=== PATIENT | female | born 1995 | race Caucasian/White ===

== ENCOUNTER 2016-06-22 08:59 | Emergency (ER) | payer OTHER ==
[~2016-06-22] VITALS: Ht 165.1 cm; Wt 65.6 kg
[~2016-06-22 08:59] MED LIST: DEPA500T3 PO; IBUP600 PO; JUNETAB2 PO; LINA290C PO; LYRI150C PO; PRAZ1 PO; SUMA100T2 PO
[2016-06-22 09:09] VITALS: BP 115/72; PULSE 100; RESP 16; TEMP 98; O2SAT 100
[2016-06-22] MEDS ORDERED: PROZ20CA11 PO (09:19)
[2016-06-22] MEDS ORDERED: BUSP10TA PO (09:19)
[2016-06-22] MEDS ORDERED: BIRTH CONTROL PILLS PO (09:19)
--- NOTE | 2016-06-22 09:22 | PD ---
HPI Chief Complaint: Headache Time Seen by Provider: 09:14 Travel History International Travel<30 days: No Contact w/Intl Traveler<30days: No Traveled to known affect area: No History of Present Illness HPI This is a 21-year-old female who presents to the emergency department with a migraine headache that can present for one week. She says initially she had both sides of her head hurting and over the week gradually moved to the right side. She describes it as throbbing. It feels very similar to migraine she's had in the past. She has had some nausea but no vomiting. The lights bother her. She says she hasn't been able to rest at home. She says the headache came on gradually and she doesn't remember the exact moment that it started. PFSH Past Medical History Anemia: Yes Anxiety: Yes Depression: Yes Heart Rhythm Problems: Yes (atrial flutter) Cancer: No Cardiovascular Problems: Yes Diabetes: No Diminished Hearing: No Endocrine: No Fibromyalgia: Yes Glaucoma: No Genitourinary: No Headaches: Yes Hepatitis: No Hiatal Hernia: No Hypertension: No Immune Disorder: No Medical other: Yes (MIGRAINES, ANEMIA) Musculoskeletal: Yes (chronic back pain) Neurologic: No Psychiatric: No Reproductive: Yes ( ENDOMETRIOSIS) Respiratory: No Immunizations Current: Yes Migraines: Yes Thyroid Disease: No ?: Not LMP: ONE WEEK Menopausal: No : 1 Miscarriage: 1 Past Surgical History Abdominal Surgery: Yes (EXPLORATORY LAPAROSCOPY) AICD: No Cardiac Surgery: Yes (ablation for atrial flutter) Joint Replacement: No Oral Surgery: Yes (WISDOM TEETH REMOVED) Pacemaker: No Tonsillectomy: Yes Other Surgery: Yes (TOENAIL REMOVAL BILAT GREAT TOES) Social History Alcohol Use: No Tobacco Use: No Substance Use: Yes (marijuana) Allergies-Medications (Allergen,Severity, Reaction): Coded Allergies: Gabapentin (Unverified Allergy, Severe, Twitching, 06/22/16) Reported Meds & Prescriptions Reported Meds & Active Scripts Active Reported [ Control Pills] 1 Tab PO DAILY Buspirone (Buspirone HCl) 10 Mg Tab 20 Mg PO TID Prozac (Fluoxetine HCl) 20 Mg Cap 20 Mg PO DAILY Review of Systems Except as stated in HPI: all other systems reviewed are Neg Physical Exam Narrative GENERAL:Well appearing, no acute distress SKIN: Warm and dry. HEAD: Atraumatic. Normocephalic. EYES: Pupils equal and round. No injection or drainage. ENT: Moist mucous membranes NECK: Trachea midline. CARDIOVASCULAR: Regular rate and rhythm. No murmur appreciated. RESPIRATORY: Clear to auscultation. Breath sounds equal bilaterally. GASTROINTESTINAL: Abdomen soft, non-tender, nondistended. MUSCULOSKELETAL: No obvious deformities. NEUROLOGICAL: Awake and alert. No obvious cranial nerve deficits. No dysarthria or aphasia. No upper or lower extremity drift. No upper extremity ataxia. PSYCHIATRIC: Appropriate mood and affect; insight and judgment normal. Data Data Last Documented VS Vital Signs Date Time Temp Pulse Resp B/P Pulse Ox O2 Delivery O2 Flow Rate FiO2 06/22/16 09:50 90 18 108/73 100 06/22/16 09:09 98.0 Orders Ketorolac Inj (Toradol Inj) (06/22/16 09:30) Prochlorperazine Inj (Compazine Inj) (06/22/16 09:30) Diphenhydramine Inj (Benadryl Inj) (06/22/16 09:30) Sodium Chlor 0.9% 1000 Ml Inj (Ns 1000 M (06/22/16 09:30) ^ Insert Iv (06/22/16 09:20) MDM Medical Decision Making Medical Screen Exam Complete: Yes Emergency Medical Condition: Yes Interpretation(s) Afebrile, mild tachycardia, normotensive Differential Diagnosis Migraine headache, subarachnoid hemorrhage, tension headache, cluster headache Narrative Course This is a 21-year-old female who presents to the emergency department with headache typical of her migraines. She has a normal neurologic exam. I don't think any imaging is warranted. She was given Toradol, Compazine and Benadryl as well as IV hydration. She feels much better and wants to go home. Patient will be discharged with naproxen. Diagnosis Primary Impression: Migraine Patient Instructions: General Instructions, Migraine Headache (ED) Additional Instructions: If you develop severe worsening headache, persistent vomiting, numbness, weakness, difficulty walking or difficulty talking return to the emergency department immediately. Sometimes in the emergency department we did not identify the cause of headaches. If you continued to have headaches it is very important that he followup with your primary care physician as you may need further testing with an MRI. Med/Other Pt SpecificInfo: Prescription(s) given Scripts Naproxen 500 Mg [id number] Mg PO BID PRN (PAIN SCALE 4 TO 10) #20 TAB Prov:Jennifer Anderson MD 06/22/16 Disposition: 01 DISCHARGE HOME Condition: Stable Jennifer Anderson MD Jun 22, 2016 09:22
[2016-06-22] MEDS ORDERED: PROCHLORPERAZINE INJ 10 MG/2 ML VIAL IVS ONE (09:30)
[2016-06-22] MEDS ORDERED: SODIUM CHLOR 0.9% 1000 ML INJ 1,000 ML IV ONE (09:30)
[2016-06-22] MEDS ORDERED: diphenhydrAMINE HCL 50 MG/ML VIAL IV PUSH ONE (09:30)
[2016-06-22] MEDS ORDERED: KETOROLAC TROMETHAMINE 30 MG/ML (IVP) VIAL IV PUSH ONE (09:30)
[2016-06-22 09:50] VITALS: BP 108/73; PULSE 90; RESP 18; O2SAT 100
[2016-06-22] MEDS ORDERED: NAPR500T PO (10:07)
== END 2016-06-22 10:15 | disposition home or self-care (01) ==
LOC: PHED 08:59
DX: G43.909 Migraine, unspecified, not intractable, without status migrainosus (principal); M79.7 Fibromyalgia; R00.0 Tachycardia, unspecified
CPT/HCPCS: 96361; 96374; 96375; 99283; J0780; J1200; J1885; J7030

== ENCOUNTER 2016-06-25 17:16 | Inpatient (IN) | payer OTHER ==
[~2016-06-25] VITALS: Ht 165.1 cm; Wt 63.7 kg
[~2016-06-25 17:16] MED LIST changes: +BIRTH CONTROL PILLS PO; +BUSP10TA PO; -DEPA500T3 PO; -IBUP600 PO; -JUNETAB2 PO; -LINA290C PO; -LYRI150C PO; +NAPR500T PO; -PRAZ1 PO; +PROZ20CA11 PO; -SUMA100T2 PO
[2016-06-25 18:00] VITALS: BP 113/71; PULSE 91; RESP 18; TEMP 98.3; O2SAT 100
[2016-06-25 18:05] VITALS: BP 113/71; PULSE 85; RESP 18; O2SAT 100
[2016-06-25] MEDS ORDERED: SODIUM CHLOR 0.9% 1000 ML INJ 1,000 ML IV ONE (18:24)
[2016-06-25] MEDS ORDERED: SODIUM CHLORIDE 0.9% FLUSH 5 ML FLUSH IVF PRN (18:30)
[2016-06-25] MEDS ORDERED: MELA1CAP PO (18:32)
[2016-06-25] MEDS ORDERED: PRENATAL VITAMIN PO (18:32)
[2016-06-25] MEDS ORDERED: ZYRT10TA PO (18:32)
[2016-06-25] MEDS ORDERED: LINA290C PO (18:32)
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
[2016-06-25 18:50] VITALS: BP 111/67; PULSE 99; RESP 18; O2SAT 100
[2016-06-25 18:51] LABS: AUTOMATED NEUTROPHIL # 4.8 TH/MM3 (1.8-7.7); BASOPHIL % 0.4 % (0.0-2.0); EOSINOPHIL % 0.4 % (0.0-4.0); HEMATOCRIT 38.3 % (35.0-46.0); HEMO FLAGS DIFF FINAL; LYMPH % 26.4 % (9.0-44.0); MEAN CORPUSCULAR HEMOGLOBIN 30.7 PG (27.0-34.0); MEAN CORPUSCULAR HGB CONC 34.1 % (32.0-36.0); MONO % 9.7 % (0.0-8.0); NEUT % 63.1 % (16.0-70.0); PLATELET COUNT 420 TH/MM3 (150-450); RED BLOOD COUNT 4.25 MIL/MM3 (4.00-5.30); RED CELL DISTRIBUTION WIDTH 12.7 % (11.6-17.2); WHITE BLOOD COUNT 7.6 TH/MM3 (4.0-11.0)
[2016-06-25 18:53] LABS: BLOOD, URINE NEG (NEG); GLUCOSE,URINE NEG (NEG); KETONE, URINE NEG (NEG); NITRITE,URINE NEG (NEG); SQUAMOUS EPITHELIAL CELL URINE 1 /hpf (0-5); URINE COLOR LIGHT-YELLOW (YELLW/STRAW)
[2016-06-25 18:57] LABS: AMPHETAMINE, URINE NEG (NEG); BARBITURATES, URINE NEG (NEG); COCAINE, URINE NEG (NEG)
[2016-06-25 19:02] LABS: COMMENT (UR) CULT NOT INDICATED; CULTURE IF INDICATED CULT NOT INDICATED
[2016-06-25 19:25] LABS: APTT (PATIENT) 26.8 SEC (24.3-30.1); PROTHROMBIN TIME - PATIENT 10.7 SEC (9.8-11.6)
[2016-06-25 19:37] LABS: ANION GAP 8 MEQ/L (5-15); AST (GOT) 13 U/L (15-37); BICARBONATE 25.7 MEQ/L (21.0-32.0); BLOOD UREA NITROGEN 6 MG/DL (7-18); CHLORIDE 104 MEQ/L (98-107); GLOMERULAR FILTRATION RATE 86 ML/MIN (>89); POTASSIUM 3.5 MEQ/L (3.5-5.1); SODIUM (NA) 138 MEQ/L (136-145)
[2016-06-25 19:41] LABS: ACETAMINOPHEN LESS THAN 2.0 MCG/ML (10.0-30.0); ALKALINE PHOSPHATASE 52 U/L (45-117); ALT (GPT) 31 U/L (10-53); TOTAL BILIRUBIN ADULT 0.2 MG/DL (0.2-1.0)
[2016-06-25 20:00] VITALS: BP 108/65; PULSE 70; RESP 16; O2SAT 100
[2016-06-25 22:00] VITALS: BP 109/68; PULSE 94; RESP 18; O2SAT 98
[2016-06-25] MEDS ORDERED: ACETAMINOPHEN 500 MG CPLT PO ONE (22:30)
[2016-06-25 22:56] VITALS: BP 121/60; PULSE 114; RESP 16; TEMP 97.5; O2SAT 98
[2016-06-25] MEDS ORDERED: EXCETAB PO (23:16)
[2016-06-25] MEDS ORDERED: SOMA350T PO (23:16)
[2016-06-25] MEDS ORDERED: LYRI200C PO (23:16)
[2016-06-25] MEDS ORDERED: ALUMINUM/MAGNESIUM/SIMETH 30 ML CUP PO PRN (23:45)
[2016-06-25] MEDS ORDERED: MAGNESIUM HYDROXIDE SUSP 30 ML CUP PO PRN (23:45)
[2016-06-26 00:03] LABS: BETA HCG QUANT LESS THAN 1 MIU/ML (0-5)
[2016-06-26] MEDS: CARISOPRODOL 350 MG TAB PO PRN ×3 (00:27→17:46)
[2016-06-26] MEDS: TEMAZEPAM 15 MG CAP PO PRN ×2 (00:27→20:51)
[2016-06-26 00:50] VITALS: PULSE 107; RESP 18; TEMP 98.2; O2SAT 100
[2016-06-26 05:06] VITALS: BP 110/68; PULSE 89; RESP 16; TEMP 97.6
[2016-06-26] MEDS: MULTIVIT/MIN/PREN/FOL AC/IRON PRENATAL TAB PO SCH (08:51)
[2016-06-26] MEDS: PREGABALIN 100 MG CAP PO SCH ×2 (08:51→20:35)
[2016-06-26] MEDS: NICOTINE 21 MG/24 HR PATCH T-DERMAL SCH (08:52)
[2016-06-26] MEDS ORDERED: LINACLOTIDE 290 MCG PO SCH (09:00)
[2016-06-26] MEDS ORDERED: FLUoxetine HCL 20 MG CAP PO SCH (09:00)
[2016-06-26] MEDS ORDERED: busPIRone HCL 10 MG TAB PO SCH (09:00)
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
--- NOTE | 2016-06-26 16:32 | EKG ---
Date Performed: 06/25/2016 Time Performed: 18:11:18 PTAGE: 21 years EKG: Sinus rhythm WITH SINUS ARRHYTHMIA WITH SHORT MD INTERVAL POSSIBLE RIGHT VENTRICULAR CONDUCTION DELAY BORDERLINE ECG NO PREVIOUS TRACING DOCTOR: Tommy Sarah Interpretating Date/Time 06/26/2016 16:30:05
[2016-06-26] MEDS: busPIRone HCL 10 MG TAB PO SCH (17:46)
[2016-06-26 18:52] VITALS: BP 112/79; PULSE 109; RESP 19; TEMP 97.9; O2SAT 97
[2016-06-26] MEDS: REMOVE OLD NICOTINE PATCH T-DERMAL SCH (20:35)
[2016-06-26] MEDS: ACETAMINOPHEN 325 MG TAB PO PRN (20:51)
[2016-06-26] MEDS: CETIRIZINE HCL 10 MG TAB PO PRN (22:10)
[2016-06-27] MEDS: CARISOPRODOL 350 MG TAB PO PRN ×2 (04:20→20:58)
[2016-06-27 06:22] VITALS: BP 98/63; PULSE 79; RESP 16; TEMP 97.6
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
[2016-06-27] MEDS: MULTIVIT/MIN/PREN/FOL AC/IRON PRENATAL TAB PO SCH (08:46)
[2016-06-27] MEDS: busPIRone HCL 10 MG TAB PO SCH ×3 (08:46→17:39)
[2016-06-27] MEDS: FLUoxetine HCL 20 MG CAP PO SCH (08:47)
[2016-06-27] MEDS: NICOTINE 21 MG/24 HR PATCH T-DERMAL SCH (08:47)
[2016-06-27] MEDS: PREGABALIN 100 MG CAP PO SCH ×2 (08:47→20:58)
[2016-06-27] MEDS: ACETAMINOPHEN 325 MG TAB PO PRN ×2 (08:47→16:57)
[2016-06-27 09:29] LABS: FREE T4 1.38 NG/DL (0.76-1.46); HDL CHOLESTEROL 51.5 MG/DL (40.0-60.0); LDL CHOLESTEROL 151 MG/DL (0-99); MAGNESIUM 2.3 MG/DL (1.5-2.5); URIC ACID 3.9 MG/DL (2.6-6.0)
[2016-06-27 09:32] LABS: CREATINE KINASE 41 U/L (26-192)
[2016-06-27 12:49] LABS: HEMOGLOBIN A1a 1.4 %; HEMOGLOBIN A1b 0.9 %; HEMOGLOBIN Ao 86.3 %; HEMOGLOBIN F 0.9 %; HEMOGLOBIN LA1C 1.8 %; HEMOGLOBIN P3 3.5 %
[2016-06-27] MEDS: CETIRIZINE HCL 10 MG TAB PO PRN (17:25)
[2016-06-27 18:43] VITALS: BP 106/67; PULSE 114; RESP 16; TEMP 99.1; O2SAT 100
[2016-06-27] MEDS: TEMAZEPAM 15 MG CAP PO PRN (20:58)
[2016-06-27] MEDS: REMOVE OLD NICOTINE PATCH T-DERMAL SCH (21:00)
[2016-06-28] MEDS: ACETAMINOPHEN 325 MG TAB PO PRN ×3 (03:49→20:18)
[2016-06-28] MEDS: CARISOPRODOL 350 MG TAB PO PRN ×3 (03:49→21:27)
[2016-06-28 06:30] VITALS: BP 111/67; PULSE 99; RESP 18; TEMP 98.1; O2SAT 100
[2016-06-28] MEDS: MULTIVIT/MIN/PREN/FOL AC/IRON PRENATAL TAB PO SCH (08:46)
[2016-06-28] MEDS: PREGABALIN 100 MG CAP PO SCH ×2 (08:46→20:17)
[2016-06-28] MEDS: FLUoxetine HCL 20 MG CAP PO SCH (08:46)
[2016-06-28] MEDS: busPIRone HCL 10 MG TAB PO SCH ×3 (08:47→17:44)
[2016-06-28] MEDS: NICOTINE 21 MG/24 HR PATCH T-DERMAL SCH (08:48)
[2016-06-28 12:06] VITALS: BP 117/77; PULSE 126; RESP 16; O2SAT 98
[2016-06-28] MEDS: CETIRIZINE HCL 10 MG TAB PO PRN (17:51)
[2016-06-28 19:03] VITALS: BP 120/77; PULSE 105; RESP 18; TEMP 98.1; O2SAT 100
[2016-06-28] MEDS: TEMAZEPAM 15 MG CAP PO PRN (20:16)
[2016-06-28] MEDS: REMOVE OLD NICOTINE PATCH T-DERMAL SCH (20:21)
[2016-06-29 05:16] VITALS: BP 109/57; PULSE 91; RESP 14; TEMP 98.5; O2SAT 98
[2016-06-29] MEDS: CARISOPRODOL 350 MG TAB PO PRN ×2 (05:20→12:59)
[2016-06-29] MEDS: NICOTINE 21 MG/24 HR PATCH T-DERMAL SCH (09:00)
[2016-06-29] MEDS: FLUoxetine HCL 20 MG CAP PO SCH (09:09)
[2016-06-29] MEDS: MULTIVIT/MIN/PREN/FOL AC/IRON PRENATAL TAB PO SCH (09:09)
[2016-06-29] MEDS: busPIRone HCL 10 MG TAB PO SCH ×2 (09:09→12:59)
[2016-06-29] MEDS: PREGABALIN 100 MG CAP PO SCH (09:10)
[2016-06-29] MEDS: ACETAMINOPHEN 325 MG TAB PO PRN (09:13)
[2016-06-29] MEDS ORDERED: BUSP10TA PO (15:18)
[2016-06-29] MEDS ORDERED: FLUO20CA4 PO (15:18)
--- NOTE | 2016-06-29 15:54 | HHI.PYPN ---
Subjective Remarks Dr. brewer is on vacation. Patient seen by me today. Demanding discharge. Stated that Dr. brewer verbally told her she could be discharged today a.m. a. Patient denies suicidality homicidality voices or visions. States she has an appointment with her talk therapist patient does deny suicidality as mentioned above who minimizes the overdose. There is a somewhat contradictory story about seeing a therapist and a psychiatrist through [facility] and also seeing another physician who is also prescribing benzodiazepines for her. In any event at the present time patient does not be criteria for involuntary psychiatric hospitalization though I feel she would benefit from further inpatient stay to stabilize and balance are medications. Also to get appropriate medical clearance. Patient does not wish this wishes to be discharge at this time. I'll allow the patient was discharged AGAINST MEDICAL ADVICE. We will also give her only 1 week supply of her Prozac 1 week supply of her BuSpar she may contact her psychiatrist or primary care friend of the medication management Review of Systems Except as stated in HPI: all other systems reviewed are Neg Objective Alert: Yes Warren: Person, Place, Date Mood: Calm, Oppositional, Other (demanding and entitled) Affect: Euthymic, Labile (mildly) Memory Intact: Comment Hallucinations: Other (denies) Delusions: No Delusion Type: Other (vigilant) Suicidal: Ideation (denies) Homicidal: Ideation (denies) Insight/Judgement Poor Vitals/IOs Vital Signs Date Time Temp Pulse Resp B/P Pulse Ox O2 Delivery O2 Flow Rate FiO2 06/29/16 05:16 98.5 91 14 109/57 98 06/25/16 22:56 Room Air Assessment & Plan Problem List: (1) Dysthymic disorder ICD Code: F34.1 (2) Borderline personality disorder ICD Code: F60.3 Assessment & Plan Estimated LOS: days patient to be discharged AMA today. With Rx only for 1 week of the Prozac and BuSpar. Patient may follow-up with her own psychiatrist at [facility] and her own counselor Justification for Cont. Inpt. Patient to be discharged AMA Discharge Planning See above Request HC Surrog/Guard Advoc?: No Ehsan Collins MD Jun 29, 2016 15:54
== END 2016-06-29 16:30 | disposition left against medical advice (07) | DRG 881 ==
LOC: NEPE 17:16 → NEDA 06-26 00:14 → H260 06-26 00:50
PROVIDERS: ADMIT Psychiatry & Neurology Psychiatry; ATTEND Psychiatry & Neurology Psychiatry
DX: F34.1 Dysthymic disorder (principal); I48.91 Unspecified atrial fibrillation; F31.9 Bipolar disorder, unspecified; F60.3 Borderline personality disorder; G43.909 Migraine, unspecified, not intractable, without status migrainosus; F43.10 Post-traumatic stress disorder, unspecified; Z86.59 Personal history of other mental and behavioral disorders; M54.9 Dorsalgia, unspecified; N80.9 Endometriosis, unspecified; Z62.810 Personal history of physical and sexual abuse in childhood; Z91.5 Personal history of self-harm; M79.7 Fibromyalgia
CPT/HCPCS: 80053; 80061; 80307; 80320; 80329; 81001; 82306; 82550; 82607; 83036; 83735; 84100; 84439; 84443; 84550; 84702; 85025; 85610; 85730; 86592; 93005; 96360; 96361; G0480; J7030

== ENCOUNTER → 2017-02-03 | Outpatient (CLI) | payer MEDICAID ==
[~2017-02-03] MED LIST changes: -BIRTH CONTROL PILLS PO; -BUSP10TA PO; +MELA1TAB18 PO; -NAPR500T PO; +PREN1TAB14 PO; +PRENATAL VITAMIN PO; -PROZ20CA11 PO; +TYLE325T PO; +ZOFR8TAB PO
== END ==
LOC: HPND 09:56
PROVIDERS: ATTEND Obstetrics & Gynecology
DX: O35.2XX0 Maternal care for (suspected) hereditary disease in fetus, not applicable or unspecified (principal); O99.352 Diseases of the nervous system complicating pregnancy, second trimester; R56.9 Unspecified convulsions; O99.342 Other mental disorders complicating pregnancy, second trimester; Z3A.00 Weeks of gestation of pregnancy not specified
CPT/HCPCS: 76811

== ENCOUNTER → 2017-03-03 | Outpatient (CLI) | payer MEDICAID | LOC: HPND 10:51 | PROVIDERS: ATTEND Obstetrics & Gynecology | DX: O35.2XX0 Maternal care for (suspected) hereditary disease in fetus, not applicable or unspecified (principal); O35.5XX0 Maternal care for (suspected) damage to fetus by drugs, not applicable or unspecified | CPT/HCPCS: 76816; 76825; 76827; 93325 ==

== ENCOUNTER → 2017-03-17 | Outpatient (CLI) | payer MEDICAID | LOC: HPND 13:37 | PROVIDERS: ATTEND Obstetrics & Gynecology | DX: O36.5920 Maternal care for other known or suspected poor fetal growth, second trimester, not applicable or unspecified (principal); O35.2XX0 Maternal care for (suspected) hereditary disease in fetus, not applicable or unspecified | CPT/HCPCS: 76816 ==

== ENCOUNTER → 2017-04-08 | Outpatient (CLI) | payer MEDICAID ==
[~2017-04-08] MED LIST changes: +MACR100C2 PO
== END ==
LOC: HPND 13:08
PROVIDERS: ATTEND Obstetrics & Gynecology
DX: O36.5920 Maternal care for other known or suspected poor fetal growth, second trimester, not applicable or unspecified (principal)
CPT/HCPCS: 76816

== ENCOUNTER 2017-04-16 21:52 | Emergency (ER) | payer MEDICAID ==
[~2017-04-16 21:52] MED LIST changes: -MACR100C2 PO
[2017-04-16] MEDS ORDERED: LACTATED RINGER'S 1000 ML INJ 1,000 ML IV SCH (22:41)
--- NOTE | 2017-04-16 22:50 | PD ---
HPI Chief Complaint Contractions Date Seen: Apr 16, 2017 Time Seen: 22:40 Travel History International Travel<30 Days: No Contact w/Intl Traveler<30Days: No Known Affected Area: No History of Present Illness HPI Patient is 22-year-old white female at 29 weeks [facility] and presents planning of contractions through the day, she denies bleeding or ruptured membranes., heart rate tracing is reactive and she is caridad every 3 minutes Weeks Gestation: 29 Para: 0 : 2 Miscarriage: 1 History Past Medical History Narrative Medical Patient has a history of atrial fib and atrial flutter. She's had ablation for the atrial fibrillation in the past still has atrial flutter and is not on medication at this time. 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 Chriss Ocasio [facility]. Patient' s had hyperemesis with this throughout and takes Zofran at home Obstetric History Obstetric History 1 early loss Past Surgical History Narrative Surgical Had an ablation procedure on the to treat atrial fibrillation Social History Alcohol Use: No Tobacco Use: No Substance Abuse: No Allergies-Medications (Allergen,Severity, Reaction): Coded Allergies: gabapentin (Unverified Allergy, Severe, Twitching, 01/20/17) Home Meds Active Scripts Ondansetron (Zofran) 8 Mg Tab, 8 MG PO TID for Nausea/Vomiting, #30 TAB 2 Refills Prov:Cat GilP 03/04/17 Vit W/ Docusate-Fe Fu (Pnv Ferrous Fumarate/Docu 29-1 mg) 1 Tab Tab, 1 TAB PO DAILY for Nutritional Supplement, #60 TAB 2 Refills Prov:Vicki Nieto CNM [facility] 12/07/16 Reported Medications Acetaminophen (Tylenol) 325 Mg Tab, 1000 MG PO BID Y for PAIN SCALE 1 TO 10, TAB 0 Refills 01/20/17 Melatonin (Melatonin) 10 Mg Tab, 10 MG PO HS Y for SLEEP, TAB 0 Refills 01/20/17 [ Vitamin] No Conflict Check, 1 TAB PO DAILY 06/25/16 Review of Systems General / Constitutional: No: Fever, Weight Gain, Chills, Other Eyes: No: Diploplia, Blurred Vision, Visual changes, Pain, Photophobia HENT: No: Headaches, Vertigo, Lightheadedness Cardiovascular: No: Irregular Rhythm, Chest Pain or Discomfort, Palpitations, Tachycardia, Syncope, Varicosities, Edema, Cyanosis Respiratory: No: Cough, Short of Breath, Other Gastrointestinal: Abdominal Pain, No: Nausea, Vomiting, Diarrhea Genitourinary: No: Decreased Urinary Output, Oliguria Musculoskeletal: No: Limited ROM, Weakness, Cramping, Edema, Pain Skin: No Rash, No Itching, No Dryness, No Lumps, No Change in Pigmentation, No Change in Nails, No Alopecia, No Lesions Neurologic: No: Weakness, Dizziness, Syncope, Focal Abnormalities, Coordination Problem, Headache, Slurred Speech, Seizures Psychiatric: No: Depression, Suicidal Ideations, Homicidal Ideation Endocrine: No: Heat Intolerance, Cold Intolerance, Polydipsia, Polyuria, Other Physical Exam Narrative GENERAL: Well-nourished, well-developed patient. SKIN: Warm and dry. HEAD: Normocephalic and atraumatic. EYES: No scleral icterus. No injection or drainage. ENT: No nasal drainage noted. Mucous membranes pink. Airway patent. NECK: Supple, trachea midline. No JVD. CARDIOVASCULAR: Regular rate and rhythm without murmurs, gallops, or rubs. RESPIRATORY: Breath sounds equal bilaterally. No accessory muscle use. BREASTS: Bilateral exam showed no masses , no retractions, no nipple discharge. ABDOMEN/GI: Abdomen soft, non-tender, bowel sounds present, no rebound, no guarding Gravid to [29-] weeks size Fundal Height: [-29] GENITOURINARY: External Genitalia: intact and normal in appearance BUS glands: [-] Cervix: [Posterior-] Dilatation: [-Closed] Effacement: [thick-] Station: [-3] Membranes: [intact ] Uterine Contractions: [-q 3 min] FHT's: Category: [1-] Baseline: [133-] Reactive: [-yes] Variability: [mod-] Decels: [0-] EXTREMITIES: No cyanosis or edema. BACK: Nontender without obvious deformity. No CVA tenderness. NEUROLOGICAL: Awake and alert. Motor and sensory grossly within normal limits. Five out of 5 muscle strength in all muscle groups. Normal speech. Data Data Orders Orders Vital Signs (Adult) .ON ADMISSION (04/16/17 22:41) ^ Labor Status (04/16/17 22:41) Urinalysis - C+S If Indicated (04/16/17 22:41) Cbc No Diff, Includes Plts (04/16/17 22:41) Comprehensive Metabolic Panel (04/16/17 22:41) Type And Screen (04/16/17 22:41) Fibronectin (04/16/17 22:41) Lactated Ringer's 1000 Ml Inj (Lr 1000 M (04/16/17 22:41) Ob/Psych Drug Screen, Urine (04/16/17 22:41) Fentanyl Inj (Fentanyl Inj) (04/16/17 22:45) Labs Urine on dipstick is negative urinalysis in the lab was positive for moderate bacteria MDM Interpretation(s) Patient is 22-year-old white female at 29 weeks who presents with contractions. She also had nausea and vomiting long-term in this . Denies bleeding or ruptured membranes. Using is reactive and she is caridad every 3 minutes. Because of contractions we will attempt to decrease those with the IV fluid and tocolyse is as indicated because of her history of heart arrhythmias were not going to give her terbutaline however amenability give her IV sedation along with IV fluid and possibly if needed magnesium sulfate IV, her fibronectin was done Plan Plan it is tocolyse as needed. Plan IV fluid and sedation. An old well moved to the next level of the tocolyse as indicated Diagnosis Diagnosis: Primary Impression: Threatened premature labor in third trimester Additional Impressions: 29 weeks gestation of UTI (urinary tract infection) in in third trimester Disposition: DISCHARGE HOME Condition: Stable Scripts Nitrofurantoin Monohydrate Macrocrystals (Macrobid) 100 Mg Cap 100 MG PO BID for Infection for 7 Days, #14 CAP 0 Refills Prov: Catrachito Beebe II, MD 04/16/17 Catrachito Beebe II, MD Apr 16, 2017 22:50
[2017-04-16 23:11] LABS: BLOOD, URINE NEG (NEG); GLUCOSE,URINE TRACE mg/dL (NEG); KETONE, URINE NEG (NEG); NITRITE,URINE NEG (NEG); PH, URINE 6.5 (5.0-8.5); URINE COLOR LIGHT-YELLOW (YELLW/STRAW)
[2017-04-16 23:17] LABS: HEMATOCRIT 33.6 % (35.0-46.0); MEAN CELL VOLUME 89.9 FL (80.0-100.0); MEAN CORPUSCULAR HEMOGLOBIN 30.1 PG (27.0-34.0); MEAN CORPUSCULAR HGB CONC 33.5 % (32.0-36.0); PLATELET COUNT 337 TH/MM3 (150-450); RED BLOOD COUNT 3.74 MIL/MM3 (4.00-5.30); RED CELL DISTRIBUTION WIDTH 13.8 % (11.6-17.2); REVIEW FLAG FINAL; WHITE BLOOD COUNT 10.4 TH/MM3 (4.0-11.0)
[2017-04-16 23:19] LABS: BACTERIA, URINE MOD /hpf; COMMENT (UR) CULTURE INDICATED; CULTURE IF INDICATED CULTURE INDICATED; SQUAMOUS EPITHELIAL CELL URINE > 8 /hpf (0-5)
[2017-04-16 23:34] LABS: ALT (GPT) 19 U/L (10-53); ANION GAP 8 MEQ/L (5-15); AST (GOT) 14 U/L (15-37); BICARBONATE 24.6 MEQ/L (21.0-32.0); BLOOD UREA NITROGEN 5 MG/DL (7-18); CHLORIDE 106 MEQ/L (98-107); GLOMERULAR FILTRATION RATE 163 ML/MIN (>89); POTASSIUM 3.6 MEQ/L (3.5-5.1); SODIUM (NA) 139 MEQ/L (136-145)
[2017-04-16 23:36] LABS: ALKALINE PHOSPHATASE 77 U/L (45-117); TOTAL BILIRUBIN ADULT 0.2 MG/DL (0.2-1.0)
[2017-04-16] MEDS ORDERED: MACR100C2 PO (23:51)
[2017-04-24 09:32] LABS: BATH SALTS (MDPV) UR NEG (NEG); ECSTASY (MDMA) UR NEG (NEG); HEROIN (6-ACETYLMORPHINE) UR NEG (NEG); K2 SPICE UR NEG (NEG); OBGABAPENTIN UR NEG (NEG); OBHYDROMORPHONE U NEG (NEG); OBMETHADONE UR NEG (NEG); PHENCYCLIDINE URINE NEG (NEG)
== END 2017-04-16 23:50 | disposition home or self-care (01) ==
LOC: HOBED 21:52
DX: O47.03 False labor before 37 completed weeks of gestation, third trimester (principal); O23.43 Unspecified infection of urinary tract in pregnancy, third trimester; B96.89 Other specified bacterial agents as the cause of diseases classified elsewhere; Z3A.29 29 weeks gestation of pregnancy; Z79.899 Other long term (current) drug therapy
CPT/HCPCS: 59025; 80053; 80307; 81001; 82731; 85027; 86850; 86900; 86901; 87086; 96360; 96372; 99284; G0481

== ENCOUNTER → 2017-04-29 | Outpatient (CLI) | payer MEDICAID ==
[~2017-04-29] MED LIST changes: +MACR100C2 PO
== END ==
LOC: HPND 14:09
PROVIDERS: ATTEND Obstetrics & Gynecology
DX: O36.5930 Maternal care for other known or suspected poor fetal growth, third trimester, not applicable or unspecified (principal)
CPT/HCPCS: 76816

== ENCOUNTER 2017-05-27 13:03 | Emergency (ER) | payer MEDICAID ==
--- NOTE | 2017-05-27 14:38 | PD ---
HPI Chief Complaint Painful contractions Date Seen: May 27, 2017 Time Seen: 14:32 Travel History International Travel<30 Days: No Contact w/Intl Traveler<30Days: No Known Affected Area: No History of Present Illness HPI Patient is a 22-year-old at 35/4 weeks presenting with painful contractions. Patient states that contractions began at 7 AM this morning, was feeling them 1 minute apart, states that they're painful at as 6/out of 10. Denies vaginal bleeding, leakage of fluid, endorses movement Last intercourse was on the . course has been without complications per patient, however patient has not been receiving regular care due to missing appointments. Last appointment was 03/18/17. Patient states that she has problems with transportation and that she can't drive herself because she has nausea. Weeks Gestation: 35 Para: 0 : 2 Miscarriage: 1 History Past Medical History Narrative Medical Sciatica pain Atrial flutter - cardiac ablation Seizure Depression Fibromyalgia Obstetric History Obstetric History History of miscarriage in 2011 Past Surgical History Narrative Surgical No recent surgery Family History Family History: Negative Social History Alcohol Use: No Tobacco Use: No Substance Abuse: No Allergies-Medications (Allergen,Severity, Reaction): Coded Allergies: gabapentin (Unverified Allergy, Severe, Twitching, 01/20/17) Home Meds Active Scripts Nitrofurantoin Monohydrate Macrocrystals (Macrobid) 100 Mg Cap, 100 MG PO BID for Infection for 7 Days, #14 CAP 0 Refills Prov:Catrachito Beebe II, MD 04/16/17 Ondansetron (Zofran) 8 Mg Tab, 8 MG PO TID for Nausea/Vomiting, #30 TAB 2 Refills Prov:Cat Gil 03/04/17 Vit W/ Docusate-Fe Fu (Pnv Ferrous Fumarate/Docu 29-1 mg) 1 Tab Tab, 1 TAB PO DAILY for Nutritional Supplement, #60 TAB 2 Refills Prov:Vicki Nieto CNM [facility] 12/07/16 Reported Medications Acetaminophen (Tylenol) 325 Mg Tab, 1000 MG PO BID Y for PAIN SCALE 1 TO 10, TAB 0 Refills 01/20/17 Melatonin (Melatonin) 10 Mg Tab, 10 MG PO HS Y for SLEEP, TAB 0 Refills 01/20/17 [ Vitamin] No Conflict Check, 1 TAB PO DAILY 06/25/16 Review of Systems Except as stated in HPI: all other systems reviewed are Neg Physical Exam Narrative GENERAL: Well-nourished, well-developed patient. SKIN: Warm and dry. HEAD: Normocephalic and atraumatic. EYES: No scleral icterus. No injection or drainage. NECK: Supple, trachea midline. No JVD. CARDIOVASCULAR: Regular rate and rhythm without murmurs, gallops, or rubs. RESPIRATORY: Breath sounds equal bilaterally. No accessory muscle use. ABDOMEN/GI: Abdomen soft, non-tender, bowel sounds present, no rebound, no guarding GENITOURINARY: Cervix: Posterior Dilatation: 0 Effacement: [-] Station: [-] Presentation: [-] Membranes: [intact or ruptured] Uterine Contractions: Irregular FHT's: Category: 1 Baseline: 130s Reactive: Yes Variability:moderate Decels: None EXTREMITIES: No cyanosis or edema. NEUROLOGICAL: Awake and alert. Motor and sensory grossly within normal limits. Normal speech. Data Data Vital Signs Reviewed: Yes Labs Initial lab date: Nov 23, 2016 Blood type: B D (Rh) Type: Positive Antibody screen: negative Hematocrit (%): 35.5 Hemoglobin (dL): 11.8 Pap test: abnormal (ASCUS/HR HPV) VDRL: negative Urine screen: Normal HBsAg: negative HIV: negative Chlamydia: negative Gonorrhea: negative MSAFP/multiple markers: negative (NIPT NEG/FEMALE) MDM Medical Record Reviewed: Yes Plan Patient is a 22-year-old at 35/4 weeks. Complains of painful contractions. Patient is not currently caridad regularly Patient cervix is closed No concern for labor heart tracing is category 1, reassuring Patient likely experiencing [place] contractions Provide patient with 50 Demerol and 25 Phenergan IM for pain relief Discharge patient with instructions to return if vaginal bleeding, gush of fluid , or frequent regular contractions DW Dr. Beebe Diagnosis Diagnosis: Primary Impression: 35 weeks gestation of Additional Impression: [place] contractions Disposition: DISCHARGE HOME Condition: Stable Hilda Nickerson MD R1 May 27, 2017 14:38
[2017-05-27] MEDS ORDERED: PROMETHAZINE HCL 25 MG TAB PO ONE (14:45)
[2017-05-27] MEDS ORDERED: MEPERIDINE HCL 50 MG TAB PO ONE (14:45)
[2017-05-27] MEDS ORDERED: MEPERIDINE HCL 50 MG/ML VIAL IM ONE (15:30)
[2017-05-27] MEDS ORDERED: PROMETHAZINE INJ 25 MG/ML VIAL IM ONE (15:30)
[2017-06-14] MEDS ORDERED: ZANT150T2 PO (15:13)
== END 2017-05-27 16:37 | disposition home or self-care (01) ==
LOC: HOBED 13:03
DX: O47.03 False labor before 37 completed weeks of gestation, third trimester (principal); Z3A.35 35 weeks gestation of pregnancy
CPT/HCPCS: 59025; 96372; 99284; J2175; J2550

== ENCOUNTER 2017-06-28 12:12 | Emergency (ER) | payer MEDICAID ==
[~2017-06-28 12:12] MED LIST changes: -MACR100C2 PO; -MELA1TAB18 PO; +PROM25TA10 PO; +ZANT150T2 PO
--- NOTE | 2017-06-28 13:08 | PD ---
HPI Chief Complaint loss of fluids Date Seen: Jun 28, 2017 Time Seen: 13:03 (Adriel Alvarado MD) Travel History International Travel<30 Days: No Contact w/Intl Traveler<30Days: No Known Affected Area: No (Adriel Alvarado MD) History of Present Illness HPI 22 y/o at 40/1 weeks presents for loss of fluids. She states that around 9 this morning had some leaking of fluids. Denies any "gush." Then, an hour later, had more leakage of fluids with mucus plug as well. Denies any vaginal bleeding. Endorses occasional contraction. Endorses good movement. She sees [facility], and she called in and they recommended her to be evaluated. Otherwise, denies any concerns. Has had chronic nausea/vomiting during this . Otherwise, no issues this . Denies any headaches, changes in vision, RUQ pain, leg pain. Some occasional leg swelling. No dysuria. Weeks Gestation: 40 Para: 0 : 2 Miscarriage: 1 (Adriel Alvarado MD) History Past Medical History Narrative Medical Atrial fibrillation Depression/anxiety Fibromyalgia Endometriosis (Adriel Alvarado MD) Obstetric History Obstetric History 1 miscarriage in 1st trimester in 2011 (Adriel Alvarado MD) Past Surgical History Narrative Surgical Atrial ablation 2014 (Adriel Alvarado MD) Family History Family History: Negative (Adriel Alvarado MD) Social History Alcohol Use: No Tobacco Use: No Substance Abuse: Yes (marijuana) (Adriel Alvarado MD) Allergies-Medications (Allergen,Severity, Reaction): Coded Allergies: gabapentin (Unverified Allergy, Severe, Twitching, 07/05/17) Home Meds Active Scripts Sertraline (Zoloft) 50 Mg Tab, 50 MG PO DAILY, #30 TAB Prov:Yanique Gudino MD R2 07/04/17 Oxycodone HCl/Acetaminophen (Oxycodone-Acetaminophen 5-325) 5 Mg-325 Mg Tablet, 1 TAB PO Q4H Y for PAIN SCALE 6 TO 10, #20 TAB Prov:Herbie Maxwell MD R1 07/04/17 Ibuprofen (Ibuprofen) 600 Mg Tab, 600 MG PO Q6H Y for CRAMPING, #60 TAB 1 Refill Prov:Herbie Maxwell MD R1 07/04/17 Promethazine (Phenergan) 25 Mg Tablet, 25 MG PO Q6H Y for NAUSEA OR VOMITING, # 20 TAB 0 Refills Prov:Dangelo Villagran MD 06/21/17 Ondansetron (Zofran) 8 Mg Tab, 8 MG PO TID for Nausea/Vomiting, #30 TAB 2 Refills Prov:Cat Gil ROTARY ROCK DRILLING MACHINE OPERATOR 03/04/17 Vit W/ Docusate-Fe Fu (Pnv Ferrous Fumarate/Docu 29-1 mg) 1 Tab Tab, 1 TAB PO DAILY for Nutritional Supplement, #60 TAB 2 Refills Prov:Vicki Nieto BoraCarlos A GUZMÁN ROTARY ROCK DRILLING MACHINE OPERATOR 12/07/16 Reported Medications Ranitidine (Zantac) 150 Mg Tab, 150 MG PO DAILY for Reduce Stomach Acid, #30 TAB 0 Refills 06/14/17 Acetaminophen (Tylenol) 325 Mg Tab, 1000 MG PO BID Y for PAIN SCALE 1 TO 10, TAB 0 Refills 01/20/17 Review of Systems General / Constitutional: Weight Gain, No: Fever, Weight Loss, Chills Eyes: No: Visual changes, Pain HENT: Headaches, No: Vertigo Cardiovascular: No: Irregular Rhythm, Chest Pain or Discomfort, Palpitations Respiratory: No: Cough, Short of Breath Gastrointestinal: Nausea, No: Diarrhea, Abdominal Pain Genitourinary: No: Urgency, Frequency, Dysuria Musculoskeletal: No: Limited ROM, Weakness Skin: No Rash, No Itching, No Dryness, No Lumps Neurologic: No: Weakness, Dizziness, Syncope Psychiatric: Anxiety (Adriel Alvarado MD) Physical Exam Narrative GENERAL: Well-nourished, well-developed patient. SKIN: Warm and dry. HEAD: Normocephalic and atraumatic. EYES: No scleral icterus. No injection or drainage. ENT: No nasal drainage noted. Mucous membranes pink. Airway patent. NECK: Supple, trachea midline. No JVD. CARDIOVASCULAR: Regular rate and rhythm without murmurs, gallops, or rubs. RESPIRATORY: Breath sounds equal bilaterally. No accessory muscle use. ABDOMEN/GI: Abdomen soft, non-tender, bowel sounds present, no rebound, no guarding Gravid to 40 weeks size GENITOURINARY: External Genitalia: intact and normal in appearance Dilatation: 0-1 Effacement: 0 Station: -3 Presentation: vertex Membranes: intact Uterine Contractions:none FHT's: Category: 1 Baseline: 140 Reactive: yes Variability: moderate Decels: none EXTREMITIES: No cyanosis or edema. BACK: Nontender without obvious deformity. No CVA tenderness. NEUROLOGICAL: Awake and alert. Motor and sensory grossly within normal limits. Five out of 5 muscle strength in all muscle groups. Normal speech. (Adriel Alvarado MD) Data Data Vital Signs Reviewed: Yes Orders Orders Vital Signs (Adult) .ON ADMISSION (06/28/17 12:59) ^ Labor Status (06/28/17 12:59) ^ Non Stress Test (06/28/17 12:59) Pamg-1 Test .ONCE (06/28/17 12:59) Us Ob Bpp Wo Nst (06/28/17 12:59) Group B Strep: Negative (Adriel Alvarado MD) MDM Medical Record Reviewed: Yes Interpretation(s) 22 y/o at 40/1 weeks presents with leakage of fluids Amnisure negative Category 1 FHT Cervical exam: 0-1/0/-3 Vitals stable -Not in labor and no leakage of fluids; discharge home in stable condition -F/u with [facility], has appt today. -Induction on 2 evening scheduled -Return to ED if gush of fluids, vaginal bleeding, severe/frequent contractions (Adriel Alvarado MD) Attending Attestation I saw and evaluated patient with the resident and performed all ring decision making. No evidence of PROM or labor at this time. Strict PROM, labor precautions and FKC. Reassuring testing. [facility] (Cat Hercules MD) Diagnosis Diagnosis: Primary Impression: 40 weeks gestation of Disposition: DISCHARGE HOME Condition: Stable Patient Instructions: General Instructions Adriel Alvarado MD Jun 28, 2017 13:08 Cat Hercules MD Jul 19, 2017 12:44
== END 2017-06-28 13:43 | disposition home or self-care (01) ==
LOC: HOBED 12:12
DX: O26.893 Other specified pregnancy related conditions, third trimester (principal); Z3A.40 40 weeks gestation of pregnancy
CPT/HCPCS: 59025; 84112

== ENCOUNTER 2017-06-30 04:34 | Inpatient (IN) | payer MEDICAID ==
[2017-06-30] VITALS (57 sets, daily range): BP systolic 98–124; BP diastolic 49–89; PULSE 63–217; RESP 17–18; TEMP 98–99.6
[~2017-06-30] VITALS: Ht 165.1 cm; Wt 64.0 kg
[2017-06-30] MEDS ORDERED: LACTATED RINGER'S 1000 ML INJ 1,000 ML IV PRN (05:36)
--- NOTE | 2017-06-30 05:36 | PD ---
HPI Chief Complaint Contractions Date Seen: Jun 30, 2017 Time Seen: 05:28 Travel History International Travel<30 Days: No Contact w/Intl Traveler<30Days: No Known Affected Area: No History of Present Illness HPI 22-year-old at 40 weeks and 3 days using good dating criteria comes in tonight complaining of contractions that started on Wednesday night and continued through off and on then 45 hours ago became significantly worse. She states are occurring every 3-6 minutes. Last exam was within the past week and cervix was FT-1cm, with a negative group B strep. Patient has a history of cardiac ablation due to flutter and he she has been normal rhythm since that time and is on no cardiac medications Weeks Gestation: 40 Para: 0 : 2 Miscarriage: 1 History Past Medical History Narrative Medical Anxiety Depression Cardiac ablation Past Surgical History Narrative Surgical Laparoscopy for endometriosis Tonsillectomy Cardiac ablation Family History Family History: Negative Social History Alcohol Use: No Tobacco Use: No Substance Abuse: Yes (daily marijuana use) Allergies-Medications (Allergen,Severity, Reaction): Coded Allergies: gabapentin (Unverified Allergy, Severe, Twitching, 06/21/17) Home Meds Active Scripts Promethazine (Phenergan) 25 Mg Tablet, 25 MG PO Q6H Y for NAUSEA OR VOMITING, # 20 TAB 0 Refills Prov:Dangelo Villagran MD 06/21/17 Ondansetron (Zofran) 8 Mg Tab, 8 MG PO TID for Nausea/Vomiting, #30 TAB 2 Refills Prov:Cat Gil 03/04/17 Vit W/ Docusate-Fe Fu (Pnv Ferrous Fumarate/Docu 29-1 mg) 1 Tab Tab, 1 TAB PO DAILY for Nutritional Supplement, #60 TAB 2 Refills Prov:Vicki Nieto CNM PAIN MANAGEMENT PHYSICIAN 12/07/16 Reported Medications Ranitidine (Zantac) 150 Mg Tab, 150 MG PO DAILY for Reduce Stomach Acid, #30 TAB 0 Refills 06/14/17 Acetaminophen (Tylenol) 325 Mg Tab, 1000 MG PO BID Y for PAIN SCALE 1 TO 10, TAB 0 Refills 01/20/17 [ Vitamin] No Conflict Check, 1 TAB PO DAILY 06/25/16 Review of Systems Except as stated in HPI: all other systems reviewed are Neg Physical Exam Narrative GENERAL: Well-nourished, well-developed patient. Very dramatic during contractions, writhing in bed SKIN: Warm and dry. HEAD: Normocephalic and atraumatic. EYES: No scleral icterus. No injection or drainage. ENT: No nasal drainage noted. Mucous membranes pink. Airway patent. NECK: Supple, trachea midline. No JVD. CARDIOVASCULAR: Regular rate and rhythm without murmurs, gallops, or rubs. RESPIRATORY: Breath sounds equal bilaterally. No accessory muscle use. ABDOMEN/GI: Abdomen soft, non-tender, bowel sounds present, no rebound, no guarding Gravid to [-38] weeks size Fundal Height: [-] GENITOURINARY: External Genitalia: intact and normal in appearance BUS glands: [-] Normal Cervix: [-] Anterior Dilatation: [-] 1-2 Effacement: [-] 80 Station: [-] -2 Presentation: [-] Vertex Membranes: [intact or ruptured] intact Uterine Contractions: [-] Every 4-6 minutes FHT's: Category: [-] 1 Baseline: [-] 140 Reactive: [-] Moderate Variability: [-] Moderate Decels: [-] Absent EXTREMITIES: No cyanosis or edema. BACK: Nontender without obvious deformity. No CVA tenderness. NEUROLOGICAL: Awake and alert. Motor and sensory grossly within normal limits. Five out of 5 muscle strength in all muscle groups. Normal speech. Data Data Vital Signs Reviewed: Yes Group B Strep: Negative MDM Medical Record Reviewed: Yes Plan 22-year-old who is at 40 weeks and 3 days with extended prodromal labor and inability to tolerate contraction pain at home. Her history of prior fibromyalgia, anxiety and depression may play a part. Observation for possible labor with pain medication History daily marijuana use Diagnosis Diagnosis: Primary Impression: 40 weeks gestation of Additional Impressions: Irregular uterine contractions History of radiofrequency ablation procedure for cardiac arrhythmia Marijuana dependence Veronica Marie MD Jun 30, 2017 05:35
[2017-06-30] MEDS ORDERED: CITRIC ACID-SODIUM CITRATE LIQ 30 ML UDC PO SCH (05:45)
[2017-06-30] MEDS ORDERED: LIDOCAINE HCL 1% 50 ML VIAL INFIL PRN (05:45)
[2017-06-30] MEDS ORDERED: LIDOCAINE HCL 1% 50 ML VIAL I-DERMAL PRN (05:45)
[2017-06-30] MEDS ORDERED: SODIUM CHLORID 0.9% 500 ML INJ 500 ML IV PRN (05:45)
[2017-06-30] MEDS ORDERED: OXYTOCIN 30 UNITS-500ML PREMIX 500 ML IV ONE (05:45)
[2017-06-30 05:56] LABS: AUTOMATED NEUTROPHIL # 11.4 TH/MM3 (1.8-7.7); BASOPHIL # 0.1 TH/MM3 (0-0.2); BASOPHIL % 0.4 % (0.0-2.0); EOSINOPHIL # 0.1 TH/MM3 (0-0.4); EOSINOPHIL % 0.7 % (0.0-4.0); HEMATOCRIT 30.1 % (35.0-46.0); HEMOGLOBIN 10.7 GM/DL (11.6-15.3); LYMPH % 16.2 % (9.0-44.0); LYMPHOCYTE # 2.4 TH/MM3 (1.0-4.8); MEAN CELL VOLUME 86.1 FL (80.0-100.0); MEAN CORPUSCULAR HEMOGLOBIN 30.5 PG (27.0-34.0); MEAN CORPUSCULAR HGB CONC 35.4 % (32.0-36.0); MEAN PLATELET VOLUME 8.1 FL (7.0-11.0); MONO % 6.4 % (0.0-8.0); NEUT % 76.3 % (16.0-70.0); PLATELET COUNT 366 TH/MM3 (150-450); RED CELL DISTRIBUTION WIDTH 13.6 % (11.6-17.2); WHITE BLOOD COUNT 14.9 TH/MM3 (4.0-11.0)
[2017-06-30] MEDS ORDERED: SODIUM CHLOR 0.9% 1000 ML INJ 1,000 ML IV PRN (05:56)
[2017-06-30] MEDS: ONDANSETRON HCL 4 MG/2 ML VIAL IV PUSH PRN ×2 (06:09→14:50)
[2017-06-30 06:18] LABS: BACTERIA, URINE OCC /hpf; BILIRUBIN, URINE NEG (NEG); BLOOD, URINE NEG (NEG); GLUCOSE,URINE NEG (NEG); KETONE, URINE NEG (NEG); MUCUS URINE FEW /lpf (OCC); NITRITE,URINE NEG (NEG); PH, URINE 6.5 (5.0-8.5); SQUAMOUS EPITHELIAL CELL URINE 3 /hpf (0-5); URINE COLOR YELLOW (YELLW/STRAW); URINE LEUKOCYTE ESTERASE TRACE (NEG)
[2017-06-30] MEDS: LACTATED RINGER'S 1000 ML INJ 1,000 ML IV SCH ×3 (07:15→21:53)
[2017-06-30] MEDS ORDERED: fentaNYL 2MCG-BUPIV 0.125% INJ 100 ML ONE (08:49)
[2017-06-30] MEDS ORDERED: ePHEDrine/NS 25 MG/5 ML SYRINGE ONE (08:50)
[2017-06-30] MEDS ORDERED: ePHEDrine/NS 25 MG/5 ML SYRINGE IV PUSH PRN (10:45)
[2017-06-30] MEDS ORDERED: DO NOT ADMINISTER ANTICOAGULANTS PRN (10:45)
[2017-06-30] MEDS ORDERED: NO SYSTEM NARCOTICS PRN (10:45)
--- NOTE | 2017-06-30 11:27 | PD.LABORPN ---
Subjective Subjective Pt resting on her right side, comfortably. Epidural in place. Contractions every 5 minutes. Objective Vital Signs Vital Signs Date Time Temp Pulse Resp B/P (MAP) Pulse Ox O2 Delivery O2 Flow Rate FiO2 06/30/17 11:00 72 105/63 (77) 06/30/17 10:31 73 06/30/17 10:21 98.7 18 06/30/17 10:20 84 108/89 (95) 06/30/17 10:15 94 110/68 (82) 06/30/17 10:10 109/73 (85) 06/30/17 10:05 91 109/71 (84) 06/30/17 10:00 78 114/68 (83) 06/30/17 09:55 79 119/69 (86) 06/30/17 09:50 82 114/74 (87) 06/30/17 09:45 82 113/69 (84) 06/30/17 09:40 71 119/65 (83) 06/30/17 09:36 18 06/30/17 09:35 87 110/74 (86) 06/30/17 09:33 81 115/75 (88) 06/30/17 09:31 91 118/49 (72) 06/30/17 09:29 81 119/77 (91) 06/30/17 09:25 91 06/30/17 09:20 79 124/84 (97) 06/30/17 07:14 98.1 06/30/17 07:11 18 06/30/17 07:10 75 116/71 (86) 06/30/17 06:10 18 Objective Pelvic Exam: Cervix: soft Dilatation: 3 Effacement: 80 Station: -1 Presentation: vertex Membranes: AROM at 1121 Uterine Contractions: q4-5 minutes FHT's: Category: 1 Baseline: 135 Reactive: yes Variability: moderate Decels: none Weeks Gestation: 40 Pt started active labor?: Yes Medical induction of labor?: No Artificial rupture of membrane: Yes Artificial ROM date: Jun 30, 2017 Artifical ROM time: 11:21 Assessment/Plan Assessment and Plan 22 y/o in labor AROM performed Epidural in place Category 1 FHT -Continue to monitor -Continuous FHT -If contractions slowing down in next hour, consider starting Pitocin -Expectant management -Plan for vaginal delivery Adriel Alvarado MD Jun 30, 2017 11:27
[2017-06-30] MEDS: fentaNYL 2MCG-BUPIV 0.125% 100 ML EPIDURAL SCH ×2 (13:04→21:44)
[2017-06-30] MEDS ORDERED: OXYTOCIN 30 UNITS-500ML PREMIX 500 ML IV PRN (13:15)
[2017-06-30] MEDS ORDERED: LIDOCAINE 2%/EPINEPHrine PF 1:200,000 20ML SDV ONE (16:05)
[2017-06-30] MEDS ORDERED: BUPIVACAINE HCL PF 0.25% 10 ML VIAL ONE (16:06)
[2017-06-30] MEDS ORDERED: MISOPROSTOL 200 MCG TAB ONE (23:29)
[2017-06-30] MEDS ORDERED: LIDOCAINE HCL 1% 20 ML VIAL ONE (23:30)
[2017-06-30] MEDS: MINERAL OIL 10 ML VIAL TOPICAL PRN (23:31)
[2017-07-01] VITALS (15 sets, daily range): BP systolic 96–135; BP diastolic 46–85; PULSE 62–128; RESP 12–23; TEMP 98–98.6; O2SAT 97–100
[2017-07-01] MEDS: MINERAL OIL 10 ML VIAL TOPICAL PRN (01:04)
[2017-07-01] MEDS ORDERED: MORPHINE SULFATE PF 5 MG/10 ML VIAL ONE (01:32)
[2017-07-01] MEDS ORDERED: ACETAMINOPHEN 1000 MG/100 ML 100 ML IV ONE (01:32)
[2017-07-01] MEDS: ceFAZolin INJ 1,000 MG VIAL ONE ×2 (01:33→01:39)
[2017-07-01] MEDS ORDERED: ACETAMINOPHEN 325 MG TAB PO PRN (02:30)
[2017-07-01] MEDS ORDERED: ONDANSETRON HCL 4 MG/2 ML VIAL IV PUSH PRN (02:30)
[2017-07-01] MEDS ORDERED: SIMETHICONE 80 MG CHEWABLE TAB PO PRN (02:30)
[2017-07-01] MEDS ORDERED: SODIUM CHLORIDE 0.9% FLUSH 10 ML FLUSH IV FLUSH PRN (02:30)
[2017-07-01] MEDS ORDERED: oxyCODONE/ACETAMINOPHEN 5 MG/325 MG TAB PO PRN (02:30)
[2017-07-01] MEDS ORDERED: OXYTOCIN 30 UNITS-500ML PREMIX 500 ML IV ONE (02:30)
[2017-07-01] MEDS ORDERED: KETOROLAC TROMETHAMINE 60 MG/2 ML (IM) VIAL IM PRN (02:30)
[2017-07-01] MEDS ORDERED: EPIDURAL-DO NOT ADMINISTER ANTICOAGULANTS PRN (02:45)
[2017-07-01] MEDS ORDERED: EPIDURAL-DIPHENHYDRAMINE HCL 50 MG/ML VIAL IV PUSH PRN (02:45)
[2017-07-01] MEDS ORDERED: EPIDURAL-NO SYSTEMIC NARCOTICS PRN (02:45)
[2017-07-01] MEDS ORDERED: EPIDURAL-NALOXONE HCL 0.4 MG/ML AMP IV PUSH PRN (02:45)
[2017-07-01] MEDS ORDERED: EPIDURAL-DIPHENHYDRAMINE HCL 50 MG CAP PO PRN (02:45)
[2017-07-01] MEDS: IBUPROFEN 600 MG TAB PO PRN ×3 (06:15→18:48)
[2017-07-01] MEDS ORDERED: LACTATED RINGER'S 1000 ML INJ 1,000 ML IV SCH (07:28)
[2017-07-01] MEDS: oxyCODONE/ACETAMINOPHEN 5 MG/325 MG TAB PO PRN ×4 (08:47→21:51)
[2017-07-01] MEDS: DOCUSATE SODIUM 50 MG/SENNA 8.6 MG TAB PO PRN (08:47)
[2017-07-01] MEDS: SODIUM CHLORIDE 0.9% FLUSH 10 ML FLUSH IV FLUSH SCH ×2 (09:00→21:00)
--- NOTE | 2017-07-01 09:02 | HHI.OB ---
Subjective Post Operative Day: 0 Remarks Postoperative day number 0. AFVSS overnight. Pain minimal. Incision not draining. Decreased lochia. Denies dysuria. No breast tenderness. She is feeding the baby via breast/bottle. Appetite good. No nausea or vomiting. + flatus. no bowel movement. Ambulating well. Denies calf pain, shortness of breath, or cough. Otherwise, she is doing well this morning and has no other complaints. Objective Vitals/I&O Vital Signs Date Time Temp Pulse Resp B/P (MAP) Pulse Ox O2 Delivery O2 Flow Rate FiO2 07/01/17 05:00 62 18 126/83 (97) 97 07/01/17 05:00 98.2 07/01/17 03:42 98.0 07/01/17 03:30 80 23 118/63 (81) 100 07/01/17 03:15 78 20 102/62 (75) 100 07/01/17 03:00 86 18 98/59 (72) 100 07/01/17 02:45 88 20 96/46 (63) 99 07/01/17 02:37 98.4 07/01/17 02:30 98.4 91 21 100 07/01/17 02:30 102/59 (73) 07/01/17 01:01 113 135/62 (86) 07/01/17 00:31 128 124/67 (86) 07/01/17 00:00 72 125/84 (98) 06/30/17 23:35 17 06/30/17 23:32 217 117/72 (87) 06/30/17 23:21 99.0 06/30/17 23:00 74 119/81 (94) 06/30/17 22:37 18 06/30/17 22:30 69 110/60 (77) 06/30/17 22:00 78 106/60 (75) 06/30/17 21:30 71 119/77 (91) 06/30/17 21:16 99.6 06/30/17 21:04 18 06/30/17 20:30 75 107/66 (80) 06/30/17 20:00 89 109/69 (82) 06/30/17 19:30 84 121/78 (92) 06/30/17 19:00 79 122/84 (97) 06/30/17 18:30 72 111/71 (84) 06/30/17 18:24 98.1 06/30/17 18:15 18 06/30/17 18:00 78 105/71 (82) 06/30/17 17:30 76 98/71 (80) 06/30/17 17:00 89 107/65 (79) 06/30/17 16:30 82 98/61 (73) 06/30/17 16:04 18 06/30/17 16:04 98.5 06/30/17 16:00 69 111/65 (80) 06/30/17 15:30 68 116/73 (87) 06/30/17 15:00 68 116/72 (87) 06/30/17 14:51 70 109/71 (84) 06/30/17 14:00 64 101/60 (74) 06/30/17 13:59 18 06/30/17 13:58 98.0 06/30/17 13:30 72 113/75 (88) 06/30/17 13:04 18 06/30/17 13:00 70 106/76 (86) 06/30/17 12:30 66 104/63 (77) 06/30/17 12:00 63 103/67 (79) 06/30/17 11:30 68 110/70 (83) 06/30/17 11:00 72 105/63 (77) 06/30/17 10:31 73 06/30/17 10:21 98.7 18 06/30/17 10:20 84 108/89 (95) 06/30/17 10:15 94 110/68 (82) 06/30/17 10:10 109/73 (85) 06/30/17 10:05 91 109/71 (84) 06/30/17 10:00 78 114/68 (83) 06/30/17 09:55 79 119/69 (86) 06/30/17 09:50 82 114/74 (87) 06/30/17 09:45 82 113/69 (84) 06/30/17 09:40 71 119/65 (83) 06/30/17 09:36 18 06/30/17 09:35 87 110/74 (86) 06/30/17 09:33 81 115/75 (88) 06/30/17 09:31 91 118/49 (72) 06/30/17 09:29 81 119/77 (91) 06/30/17 09:25 91 06/30/17 09:20 79 124/84 (97) Result Diagram: 06/30/17 0535 Objective Remarks GENERAL: Well-nourished, well-developed patient. CARDIOVASCULAR: Regular rate and rhythm without murmurs, gallops, or rubs. RESPIRATORY: Breath sounds equal bilaterally. No accessory muscle use. ABDOMEN/GI: Abdomen soft, non-tender, bowel sounds present. Incision: Clean, dry and intact. Fundus: Firm, non-tender at umbilicus. GENITOURINARY: Light to moderate bleeding. EXTREMITIES: No cyanosis or edema, non-tender, without signs of DVT. Medications and IVs Current Medications Medications (Trade) Dose Ordered Sig/Kwadwo Route Start Time Stop Time Status Last Admin Lactated Ringer's 1,000 ml @ 125 mls/hr Q8H IV 06/30/17 05:36 06/30/17 21:53 Lactated Ringer's 1,000 ml @ 3,000 mls/hr Q20M PRN IV 06/30/17 05:36 Sodium Chloride 500 ml @ 1,000 mls/hr ONCE PRN IV 06/30/17 05:45 Sodium Chloride 1,000 ml @ 100 mls/hr Q10H PRN IV 06/30/17 05:56 (Xylocaine 1% Inj (50 ml)) 0.1 ml UNSCH X1 PRN I-DERMAL 06/30/17 05:45 07/03/17 05:44 (Bicitra Liq) 30 ml LINER CHECKER PO 06/30/17 05:45 07/04/17 05:44 (Zofran Inj) 4 mg Q6H PRN IV PUSH 06/30/17 05:45 06/30/17 14:50 (fentaNYL INJ) 50 mcg Q1H PRN IV PUSH 06/30/17 05:45 (fentaNYL INJ) 100 mcg Q1H PRN IV PUSH 06/30/17 05:45 06/30/17 08:20 (Xylocaine 1% Inj (50 ml)) 10 ml UNSCH X1 PRN INFIL 06/30/17 05:45 07/02/17 05:44 (Muri-Lube Oil) 10 ml UNSCH PRN TOPICAL 06/30/17 05:45 07/01/17 01:04 Miscellaneous Information No systemic narcotics to be given except... UNSCH PRN .XX 06/30/17 10:45 07/01/17 10:44 Miscellaneous Information DO NOT ADMINISTER ANY ANTICOAGUL... UNSCH PRN .XX 06/30/17 10:45 07/01/17 10:44 Fentanyl/ Bupivacaine HCl 100 ml @ 0 mls/hr TITRATE EPIDURAL 06/30/17 10:45 06/30/17 21:44 (ePHEDrine/NS 25 MG/5 ML SYR) 10 mg UNSCH PRN IV PUSH 06/30/17 10:45 07/01/17 10:44 Oxytocin 500 ml @ 0 mls/hr TITRATE PRN IV 06/30/17 13:15 06/30/17 13:25 Lactated Ringer's 1,000 ml @ 100 mls/hr Q10H IV 07/01/17 07:28 07/02/17 03:27 07/01/17 05:45 Oxytocin 500 ml @ 100 mls/hr UNSCH X1 PRN IV 07/01/17 12:30 07/02/17 12:29 (NS Flush) 2 ml BID IV FLUSH 07/01/17 09:00 (NS Flush) 2 ml UNSCH PRN IV FLUSH 07/01/17 02:30 (Mylicon Chew) 80 mg QID PRN PO 07/01/17 02:30 (Tylenol) 650 mg Q6H PRN PO 07/01/17 02:30 (Motrin) 600 mg Q6H PRN PO 07/01/17 02:30 07/01/17 06:15 (Toradol Inj) 60 mg UNSCH X1 PRN IM 07/01/17 02:30 07/02/17 02:29 (Percocet 5-325 Mg) 1 tab Q4H PRN PO 07/01/17 02:30 (Percocet 5-325 Mg) 2 tab Q4H PRN PO 07/01/17 02:30 07/01/17 08:47 Cefazolin Sodium 2000 mg/Sodium Chloride 100 ml @ 200 mls/hr Q8H IV 07/01/17 09:00 07/01/17 17:29 (Lydia-Colace) 2 tab Q12H PRN PO 07/01/17 02:30 07/01/17 08:47 (M-M-R Ii Inj) 0.5 ml ONCE ONCE SQ 07/02/17 16:00 07/02/17 16:01 (Boostrix Inj) 0.5 ml ONCE ONCE IM 07/02/17 16:00 07/02/17 16:01 (Zofran Inj) 4 mg Q6H PRN IV PUSH 07/01/17 02:30 Miscellaneous Information NO SYSTEMIC NARCOTICS TO BE GIVEN FO... UNSCH PRN .XX 07/01/17 02:45 07/02/17 02:44 (Narcan Inj) 0.4 mg UNSCH PRN IV PUSH 07/01/17 02:45 07/02/17 02:44 (Benadryl Inj) 25 mg Q6H PRN IV PUSH 07/01/17 02:45 07/02/17 02:44 (Benadryl) 50 mg Q6H PRN PO 07/01/17 02:45 07/02/17 02:44 Miscellaneous Information ALL NURSING DEPARTMENTS UNSCH PRN .XX 07/01/17 02:45 07/02/17 02:44 (Flu (Quadrivalent) Vaccine Inj) 0.5 ml ONCE ONCE IM 07/02/17 10:00 07/02/17 10:01 Assessment/Plan Problem List: (1) delivery, delivered, current hospitalization ICD Codes: O82 - Encounter for delivery without indication Status: Acute Assessment and Plan 22 y/o female who is POD# 0 s/p CXN due to arrest of descent. -Continue routine care. -Percocet and Motrin PRN pain. -Encouraged OOB. Advised pelvic rest for 6 wks. Will need a f/u appt. in 1 wk for incision check. -Re: ctrl, she would like control pills. -D/c in 2-3 more days. [facility] attending Ashlyn Blair MD R1 Jul 01, 2017 09:02
[2017-07-01] MEDS ORDERED: DEXAMETHASONE SOD PHOS 4 MG/ML VIAL IV ONE (12:00)
[2017-07-01] MEDS ORDERED: LACTATED RINGER'S 1000 ML INJ 2,000 ML IV ONE (12:00)
[2017-07-01] MEDS ORDERED: OXYTOCIN 10 UNIT/ML AMP IV ONE (12:00)
[2017-07-01] MEDS ORDERED: ceFAZolin INJ 1,000 MG VIAL IV ONE (12:00)
[2017-07-01] MEDS ORDERED: PHENYLEPH/NS 1000 MCG/10 ML SYR IV ONE (12:00)
[2017-07-01] MEDS ORDERED: KETOROLAC TROMETHAMINE 30 MG/ML (IVP) VIAL IV PUSH ONE (12:00)
[2017-07-01] MEDS ORDERED: LIDOCAINE HCL 1% PF 5 ML SYRINGE OTHER ONE (12:00)
[2017-07-01] MEDS ORDERED: OXYTOCIN 30 UNITS-500ML PREMIX 500 ML IV PRN (12:30)
--- NOTE | 2017-07-01 13:56 | MP ---
cc: MAYCOL HOWARD MD DATE OF SURGERY 07/01/2017 PREOPERATIVE DIAGNOSIS Failure to progress at term. POSTOPERATIVE DIAGNOSIS Failure to progress at term. PROCEDURE PERFORMED Primary low transverse section. SURGEON MD Abiel ANESTHESIA Epidural. PREOPERATIVE NOTE The patient is a 22-year-old white female, G1, P0 at 40-1/2 weeks who presented in early labor. She was admitted, augmented, appropriately contracted well and proceeded to the second stage of labor, pushed for 2 hours without descent of the presenting part beyond a 0 station. It was felt she had failure to progress and transabdominal delivery was indicated. PROCEDURE The patient was taken to the operating room, placed in supine position on the operating room table. After adequate epidural anesthesia was administered, she was prepped and draped for an abdominal procedure. A Pfannenstiel incision was made in the lower abdomen and carried through the fascia sharply. The fascia was dissected laterally, then off the rectus muscle. The peritoneal cavity was entered in the midline. The incision was extended superiorly and inferiorly, the bladder blade used to protect the bladder. The incision stretched open and the visceral peritoneum reflected off the lower uterine segment. Transverse hysterotomy was made and extended bluntly bilaterally and light meconium-stained fluid noted. A female was delivered at 01:52 a.m., weight 3290 grams, 8 and 9. There were no complications. Cord gas obtained was 7.30. Cord blood obtained. Placenta manually extracted. The uterus was exteriorized and the hysterotomy closed in a running layer of 0 chromic followed by imbricating suture of the same. Hemostasis was achieved. The ovaries and tubes were within normal limits. The uterus was elevated, blood suctioned from the cul-de-sac and gutters and the uterus replaced in the peritoneal cavity. The parietal peritoneum was closed in a running layer of 2-0 Vicryl. Rectus muscle was reapproximated with stick ties of Vicryl and chromic. The fascia was closed in a running layer of 0 Vicryl. The skin was closed with 3-0 Monocryl subcuticular stitch. Pressure dressing applied. Estimated blood loss was 500 cc. There were no complications. Counts correct x2. The patient went to Recovery in stable condition. MD YVONNE King/SSB /3:19 AM /1:28 PM
[2017-07-01] MEDS ORDERED: ceFAZolin 2 GM PREMIX 50 ML IV SCH (17:00)
[2017-07-01] MEDS ORDERED: METHYLERGONOVINE MALEATE 0.2 MG/ML VIAL IM ONE (17:45)
[2017-07-01] MEDS ORDERED: DIPHTH/TETANUS/ACEL PERTUSSIS (BOOSTER) 0.5 ML VIAL/PFS IM ONE (19:30)
[2017-07-01] MEDS ORDERED: INFLUENZA VIRUS VACCINE (QUADRIVALENT) 0.5 ML SYR IM ONE (19:30)
[2017-07-02] MEDS: oxyCODONE/ACETAMINOPHEN 5 MG/325 MG TAB PO PRN ×5 (01:48→21:00)
[2017-07-02] MEDS: IBUPROFEN 600 MG TAB PO PRN ×3 (01:48→16:34)
[2017-07-02 06:02] LABS: AUTOMATED NEUTROPHIL # 17.2 TH/MM3 (1.8-7.7); BASOPHIL # 0.1 TH/MM3 (0-0.2); BASOPHIL % 0.3 % (0.0-2.0); EOSINOPHIL # 0.1 TH/MM3 (0-0.4); EOSINOPHIL % 0.5 % (0.0-4.0); HEMATOCRIT 24.4 % (35.0-46.0); HEMOGLOBIN 8.2 GM/DL (11.6-15.3); LYMPH % 12.8 % (9.0-44.0); LYMPHOCYTE # 2.8 TH/MM3 (1.0-4.8); MEAN CELL VOLUME 87.5 FL (80.0-100.0); MEAN CORPUSCULAR HEMOGLOBIN 29.4 PG (27.0-34.0); MEAN CORPUSCULAR HGB CONC 33.6 % (32.0-36.0); MONO % 8.2 % (0.0-8.0); MONOCYTE # 1.8 TH/MM3 (0-0.9); NEUT % 78.2 % (16.0-70.0); PLATELET COUNT 355 TH/MM3 (150-450); RED BLOOD COUNT 2.79 MIL/MM3 (4.00-5.30); RED CELL DISTRIBUTION WIDTH 14.1 % (11.6-17.2)
[2017-07-02] MEDS: DOCUSATE SODIUM 50 MG/SENNA 8.6 MG TAB PO PRN ×2 (07:50→20:59)
[2017-07-02] MEDS: ONDANSETRON HCL 4 MG/2 ML VIAL IV PUSH PRN (07:51)
[2017-07-02 08:00] VITALS: BP 105/73; PULSE 72; RESP 18; TEMP 98.1; O2SAT 100
--- NOTE | 2017-07-02 08:50 | HHI.OB ---
Subjective Post Operative Day: 1 Remarks Postoperative day number 1. AFVSS overnight. Pain well-controlled. Incision not draining. Decreased lochia. Denies dysuria. No breast tenderness. She is feeding the baby via bottle. Appetite good. No nausea or vomiting. + flatus. no bowel movement as of yet. Suffers from IBS with chronic constipation. Ambulating well. Denies calf pain, shortness of breath, or cough. Otherwise, she is doing well this morning and has no other complaints. Objective Vitals/I&O Vital Signs Date Time Temp Pulse Resp B/P (MAP) Pulse Ox O2 Delivery O2 Flow Rate FiO2 07/02/17 08:00 98.1 72 18 105/73 (84) 100 07/01/17 20:15 98.4 07/01/17 20:15 71 16 119/82 (94) 07/01/17 16:00 98.3 77 12 07/01/17 16:00 107/68 (81) 07/01/17 12:00 98.6 70 16 116/81 (93) Result Diagram: 07/02/17 0517 Objective Remarks GENERAL: Well-nourished, well-developed patient. CARDIOVASCULAR: Regular rate and rhythm without murmurs, gallops, or rubs. RESPIRATORY: Breath sounds equal bilaterally. No accessory muscle use. ABDOMEN/GI: Abdomen soft, non-tender, bowel sounds present. Incision: Clean, dry and intact. Fundus: Firm, non-tender at umbilicus. GENITOURINARY: Light to moderate bleeding. EXTREMITIES: No cyanosis or edema, non-tender, without signs of DVT. Medications and IVs Current Medications Medications (Trade) Dose Ordered Sig/Kwadwo Route Start Time Stop Time Status Last Admin Lactated Ringer's 1,000 ml @ 125 mls/hr Q8H IV 06/30/17 05:36 06/30/17 21:53 Lactated Ringer's 1,000 ml @ 3,000 mls/hr Q20M PRN IV 06/30/17 05:36 Sodium Chloride 500 ml @ 1,000 mls/hr ONCE PRN IV 06/30/17 05:45 Sodium Chloride 1,000 ml @ 100 mls/hr Q10H PRN IV 06/30/17 05:56 (Xylocaine 1% Inj (50 ml)) 0.1 ml UNSCH X1 PRN I-DERMAL 1/31/18 05:45 07/03/17 05:44 (Bicitra Liq) 30 ml SALES ENGINEERING MANAGER PO 06/30/17 05:45 07/04/17 05:44 (Zofran Inj) 4 mg Q6H PRN IV PUSH 06/30/17 05:45 07/02/17 07:51 (fentaNYL INJ) 50 mcg Q1H PRN IV PUSH 06/30/17 05:45 (fentaNYL INJ) 100 mcg Q1H PRN IV PUSH 06/30/17 05:45 06/30/17 08:20 (Muri-Lube Oil) 10 ml UNSCH PRN TOPICAL 06/30/17 05:45 07/01/17 01:04 Fentanyl/ Bupivacaine HCl 100 ml @ 0 mls/hr TITRATE EPIDURAL 06/30/17 10:45 06/30/17 21:44 Oxytocin 500 ml @ 0 mls/hr TITRATE PRN IV 06/30/17 13:15 06/30/17 13:25 Oxytocin 500 ml @ 100 mls/hr UNSCH X1 PRN IV 07/01/17 12:30 07/02/17 12:29 (NS Flush) 2 ml BID IV FLUSH 07/01/17 09:00 (NS Flush) 2 ml UNSCH PRN IV FLUSH 07/01/17 02:30 (Mylicon Chew) 80 mg QID PRN PO 07/01/17 02:30 (Tylenol) 650 mg Q6H PRN PO 07/01/17 02:30 (Motrin) 600 mg Q6H PRN PO 07/01/17 02:30 07/02/17 07:51 (Percocet 5-325 Mg) 1 tab Q4H PRN PO 07/01/17 02:30 (Percocet 5-325 Mg) 2 tab Q4H PRN PO 07/01/17 02:30 07/02/17 07:51 (Lydia-Colace) 2 tab Q12H PRN PO 07/01/17 02:30 07/02/17 07:50 (M-M-R Ii Inj) 0.5 ml ONCE ONCE SQ 07/02/17 16:00 07/02/17 16:01 (Zofran Inj) 4 mg Q6H PRN IV PUSH 07/01/17 02:30 Assessment/Plan Problem List: (1) delivery, delivered, current hospitalization ICD Codes: O82 - Encounter for delivery without indication Status: Acute Assessment and Plan 22 y/o female who is POD# 1 s/p CXN due to arrest of descent. -Continue routine care. -Percocet and Motrin PRN pain. -Encouraged OOB. Advised pelvic rest for 6 wks. Will need a f/u appt. in 1 wk for incision check. -Re: ctrl, she would like control pills. -D/c in 1-2 more days. [facility]dw OB attending Ashlyn Blair MD R1 Jul 02, 2017 08:50
[2017-07-02] MEDS: SERTRALINE HCL 50 MG TAB PO SCH (10:48)
[2017-07-02] MEDS ORDERED: MEASLES, MUMPS, RUBELLA VACCINE 0.5 ML VIAL SQ ONE (16:00)
[2017-07-02] MEDS: ONDANSETRON ODT 4 MG TAB PO PRN (16:34)
[2017-07-02 19:55] VITALS: BP 105/72; PULSE 64; RESP 17; TEMP 98.3
[2017-07-03] MEDS: oxyCODONE/ACETAMINOPHEN 5 MG/325 MG TAB PO PRN ×5 (03:14→22:29)
[2017-07-03] MEDS: IBUPROFEN 600 MG TAB PO PRN ×3 (03:14→18:29)
--- NOTE | 2017-07-03 06:14 | HHI.OB ---
Subjective Post Operative Day: 2 Remarks Postoperative day 2. AFVSS overnight. Pain well-controlled. Incision not draining. Decreased lochia. Denies dysuria. No breast tenderness. She is feeding the baby via bottle. Appetite good. No nausea or vomiting. + flatus. Negative bowel movement. Has IBS with chronic constipation, has been taking stool softeners and MiraLAX. Ambulating well. Denies calf pain, shortness of breath, or cough. Otherwise, she is doing well this morning and has no other complaints. Objective Vitals/I&O Vital Signs Date Time Temp Pulse Resp B/P (MAP) Pulse Ox O2 Delivery O2 Flow Rate FiO2 07/02/17 19:55 98.3 64 17 105/72 (83) 07/02/17 08:00 98.1 72 18 105/73 (84) 100 Result Diagram: 07/02/17 0517 Objective Remarks GENERAL: Well-nourished, well-developed patient. CARDIOVASCULAR: Regular rate and rhythm without murmurs, gallops, or rubs. RESPIRATORY: Breath sounds equal bilaterally. No accessory muscle use. ABDOMEN/GI: Abdomen soft, non-tender, bowel sounds present. Incision: Clean, dry and intact. Fundus: Firm, non-tender below umbilicus. GENITOURINARY: Light to moderate bleeding. EXTREMITIES: No cyanosis or edema, non-tender, without signs of DVT. Medications and IVs Current Medications Medications (Trade) Dose Ordered Sig/[facility] Route Start Time Stop Time Status Last Admin Lactated Ringer's 1,000 ml @ 125 mls/hr Q8H IV 06/30/17 05:36 06/30/17 21:53 Lactated Ringer's 1,000 ml @ 3,000 mls/hr Q20M PRN IV 06/30/17 05:36 Sodium Chloride 500 ml @ 1,000 mls/hr ONCE PRN IV 06/30/17 05:45 Sodium Chloride 1,000 ml @ 100 mls/hr Q10H PRN IV 06/30/17 05:56 (Bicitra Liq) 30 ml OIL FIRE [employer]IST PO 06/30/17 05:45 07/04/17 05:44 (fentaNYL INJ) 50 mcg Q1H PRN IV PUSH 06/30/17 05:45 (fentaNYL INJ) 100 mcg Q1H PRN IV PUSH 06/30/17 05:45 06/30/17 08:20 (Muri-Lube Oil) 10 ml UNSCH PRN TOPICAL 06/30/17 05:45 07/01/17 01:04 Fentanyl/ Bupivacaine HCl 100 ml @ 0 mls/hr TITRATE EPIDURAL 06/30/17 10:45 06/30/17 21:44 Oxytocin 500 ml @ 0 mls/hr TITRATE PRN IV 06/30/17 13:15 06/30/17 13:25 (NS Flush) 2 ml BID IV FLUSH 07/01/17 09:00 (NS Flush) 2 ml UNSCH PRN IV FLUSH 07/01/17 02:30 (Mylicon Chew) 80 mg QID PRN PO 07/01/17 02:30 (Tylenol) 650 mg Q6H PRN PO 07/01/17 02:30 (Motrin) 600 mg Q6H PRN PO 07/01/17 02:30 07/03/17 03:14 (Percocet 5-325 Mg) 1 tab Q4H PRN PO 07/01/17 02:30 (Percocet 5-325 Mg) 2 tab Q4H PRN PO 07/01/17 02:30 07/03/17 03:14 (Lydia-Colace) 2 tab Q12H PRN PO 07/01/17 02:30 07/02/17 20:59 (Miralax) 17 gm DAILY PO 07/02/17 09:15 (Zoloft) 50 mg DAILY PO 07/02/17 09:30 07/02/17 10:48 (Zofran Odt) 4 mg Q6H PRN PO 07/02/17 16:30 07/02/17 16:34 Assessment/Plan Problem List: (1) delivery, delivered, current hospitalization ICD Codes: O82 - Encounter for delivery without indication Status: Acute Assessment and Plan 22 y/o female who is POD# 2 s/p CXN due to arrest of descent. -Continue routine care. -Percocet and Motrin PRN pain. -Encouraged OOB. Advised pelvic rest for 6 wks. Will need a f/u appt. in 1 wk for incision check. -Re: ctrl, she would like control pills. -D/c in [address] Diomedes Gudino,[facility] R2 Jul 03, 2017 06:14
[2017-07-03] MEDS: SERTRALINE HCL 50 MG TAB PO SCH (07:53)
[2017-07-03] MEDS: POLYETHYLENE GLYCOL 17 GM PKG PO SCH (07:53)
[2017-07-03 08:00] VITALS: BP 112/69; PULSE 63; RESP 16; TEMP 98.2; O2SAT 98
[2017-07-03] MEDS: ONDANSETRON ODT 4 MG TAB PO PRN (12:27)
[2017-07-03 20:00] VITALS: BP 122/84; PULSE 56; RESP 16; TEMP 98; O2SAT 100
[2017-07-03] MEDS: SODIUM CHLORIDE 0.9% FLUSH 10 ML FLUSH IV FLUSH SCH (20:06)
[2017-07-03] MEDS: LACTATED RINGER'S 1000 ML INJ 1,000 ML IV SCH ×2 (21:36→21:40)
[2017-07-04] MEDS: IBUPROFEN 600 MG TAB PO PRN (03:05)
[2017-07-04] MEDS: oxyCODONE/ACETAMINOPHEN 5 MG/325 MG TAB PO PRN ×2 (03:06→07:45)
[2017-07-04] MEDS: SERTRALINE HCL 50 MG TAB PO SCH (07:53)
[2017-07-04] MEDS: POLYETHYLENE GLYCOL 17 GM PKG PO SCH (07:53)
[2017-07-04] MEDS: DOCUSATE SODIUM 50 MG/SENNA 8.6 MG TAB PO PRN (07:53)
[2017-07-04 08:00] VITALS: BP 113/80; PULSE 75; RESP 18; TEMP 98.5
--- NOTE | 2017-07-04 08:51 | HHI.OB ---
Subjective Post Operative Day: 3 Remarks POD#3. AFVSS overnight. Pain well-controlled. Incision not draining. Decreased lochia. Denies dysuria. No breast tenderness. She is feeding the baby breastmilk via bottle. Appetite good. Describes nausea at baseline due to IBD , but no vomiting. Pt had a BM this morning. Ambulating well. Denies calf pain , shortness of breath, CP, or cough. Otherwise, she is doing well this morning and has no other complaints. (Herbie Maxwell MD R1) Remarks Patient seen and evaluated with resident under direct supervision, agree with assessment and plan. (Keith Salgado MD) Objective Vitals/I&O Vital Signs Date Time Temp Pulse Resp B/P (MAP) Pulse Ox O2 Delivery O2 Flow Rate FiO2 07/03/17 20:00 98.0 56 16 122/84 (97) 100 (Herbie Maxwell MD R1) Result Diagram: 07/02/17 0517 Objective Remarks GENERAL: Well-nourished, well-developed patient. CARDIOVASCULAR: Regular rate and rhythm without murmur, gallop, or rub. RESPIRATORY: Breath sounds equal bilaterally. No accessory muscle use. ABDOMEN/GI: Abdomen soft, non-tender, bowel sounds present. Incision: Clean, dry and intact. Fundus: Firm, non-tender below umbilicus. GENITOURINARY: Light to moderate bleeding. EXTREMITIES: No cyanosis or edema, non-tender, without signs of DVT. Medications and IVs Current Medications Medications (Trade) Dose Ordered Sig/[facility] Route Start Time Stop Time Status Last Admin Lactated Ringer's 1,000 ml @ 125 mls/hr Q8H IV 06/30/17 05:36 06/30/17 21:53 Lactated Ringer's 1,000 ml @ 3,000 mls/hr Q20M PRN IV 06/30/17 05:36 Sodium Chloride 500 ml @ 1,000 mls/hr ONCE PRN IV 06/30/17 05:45 Sodium Chloride 1,000 ml @ 100 mls/hr Q10H PRN IV 06/30/17 05:56 (fentaNYL INJ) 50 mcg Q1H PRN IV PUSH 06/30/17 05:45 (fentaNYL INJ) 100 mcg Q1H PRN IV PUSH 06/30/17 05:45 06/30/17 08:20 (Muri-Lube Oil) 10 ml UNSCH PRN TOPICAL 06/30/17 05:45 07/01/17 01:04 Fentanyl/ Bupivacaine HCl 100 ml @ 0 mls/hr TITRATE EPIDURAL 06/30/17 10:45 06/30/17 21:44 Oxytocin 500 ml @ 0 mls/hr TITRATE PRN IV 06/30/17 13:15 06/30/17 13:25 (NS Flush) 2 ml BID IV FLUSH 07/01/17 09:00 (NS Flush) 2 ml UNSCH PRN IV FLUSH 07/01/17 02:30 (Mylicon Chew) 80 mg QID PRN PO 07/01/17 02:30 (Tylenol) 650 mg Q6H PRN PO 07/01/17 02:30 (Motrin) 600 mg Q6H PRN PO 07/01/17 02:30 07/04/17 03:05 (Percocet 5-325 Mg) 1 tab Q4H PRN PO 07/01/17 02:30 (Percocet 5-325 Mg) 2 tab Q4H PRN PO 07/01/17 02:30 07/04/17 07:45 (Lydia-Colace) 2 tab Q12H PRN PO 07/01/17 02:30 07/04/17 07:53 (Miralax) 17 gm DAILY PO 07/02/17 09:15 07/04/17 07:53 (Zoloft) 50 mg DAILY PO 07/02/17 09:30 07/04/17 07:53 (Zofran Odt) 4 mg Q6H PRN PO 07/02/17 16:30 07/03/17 12:27 (Herbie Maxwell MD R1) Assessment/Plan Problem List: (1) delivery, delivered, current hospitalization ICD Codes: O82 - Encounter for delivery without indication Status: Acute Assessment and Plan 22 y/o female who is POD# 3 s/p CXN due to arrest of descent. -Continue routine care. -Percocet and Motrin PRN pain. -Encouraged OOB. Advised pelvic rest for 6 wks. Will need a f/u appt. in 1 wk for incision check. -Re: ctrl, she would like control pills. -D/c today. ROSINA Aracelis Salgado and Shahab (Herbie Maxwell MD R1) Herbie Maxwell MD R1 Jul 04, 2017 08:51 Keith Salgado MD Jul 09, 2017 10:29
[2017-07-04] MEDS ORDERED: IBUP-232 PO (08:54)
[2017-07-04] MEDS ORDERED: OXYC1TAB63 PO (08:54)
--- NOTE | 2017-07-04 08:56 | HHI.DCPOC ---
Discharge Care Plan Report Symptoms to Your Doctor -Temperature above 100.5 degrees -Redness, of incision or excessive or foul smelling drainage -Unusual pain or calf pain -Increased vaginal bleeding -Painful or difficulty urinating -Feelings of extreme sadness or anxiety after 2 weeks Goals to Promote Your Health * To prevent worsening of your condition and complications, please take medications as prescribed. * To maintain your health at the optimal level, please follow up with your OB/ [facility] doctor in 1 week. Directions to Meet Your Goals Take your medications as prescribed Follow your dietary instruction Follow activity as directed Ensure plenty of rest for recovery Drink fluids for hydration Keep your appointments as scheduled Take your immunizations and boosters as scheduled If your symptoms worsen call your PCP, if no PCP go to Urgent Care Center or Emergency Room Smoking is Dangerous to Your Health. Avoid second hand smoke Call the 24-hour crisis hotline for domestic abuse at Herbie Maxwell MD R1 Jul 04, 2017 08:56
[2017-07-04] MEDS ORDERED: ZOLO50TA PO (11:39)
== END 2017-07-04 16:16 | disposition home or self-care (01) | DRG 765 ==
LOC: HOBED 04:34 → H2EB 05:34 → H1EA 07-01 03:49
PROVIDERS: ADMIT Obstetrics & Gynecology Obstetrics; ATTEND Obstetrics & Gynecology Obstetrics
PROC: 10907ZC Drainage of Amniotic Fluid, Therapeutic from Products of Conception, Via Natural or Artificial Opening (ICD-10-PCS; 2017-06-30)
PROC: 3E0R3BZ Introduction of Anesthetic Agent into Spinal Canal, Percutaneous Approach (ICD-10-PCS; 2017-06-30)
PROC: 00HU33Z Insertion of Infusion Device into Spinal Canal, Percutaneous Approach (ICD-10-PCS; 2017-06-30)
PROC: 10D00Z1 Extraction of Products of Conception, Low, Open Approach (ICD-10-PCS; principal; 2017-07-01)
DX: O63.0 Prolonged first stage (of labor) (principal); O99.324 Drug use complicating childbirth; F12.90 Cannabis use, unspecified, uncomplicated; O62.1 Secondary uterine inertia; O99.613 Diseases of the digestive system complicating pregnancy, third trimester; K58.1 Irritable bowel syndrome with constipation; Z3A.40 40 weeks gestation of pregnancy; Z37.0 Single live birth; Z23 Encounter for immunization
CPT/HCPCS: 59025; 80307; 81001; 82805; 84112; 85025; 86900; 86901; 90686; 90715; J0131; J0690; J1100; J1885; J2210; J2274; J2370; J2405; J2590; J3010; J7120; Q2038

== ENCOUNTER 2017-07-05 16:55 | Emergency (ER) | payer MEDICAID ==
[~2017-07-05 16:55] MED LIST changes: +IBUP-232 PO; +OXYC1TAB63 PO; +ZOLO50TA PO
[2017-07-05 16:57] VITALS: BP 131/80; PULSE 67; RESP 18; TEMP 97.7; O2SAT 100
--- NOTE | 2017-07-05 17:23 | PD ---
HPI Chief Complaint: Bleeding Time Seen by Provider: 17:06 Travel History International Travel<30 days: No Contact w/Intl Traveler<30days: No Traveled to known affect area: No History of Present Illness HPI This is a 22-year-old female status post on July 01, 2017, performed by Dr. Beebe, presents for evaluation of low hemoglobin. She reports that today she was at the [facility] office where she had a routine hemoglobin checked and she was told that her hemoglobin was 7.5. The patient does report that she has been experiencing lightheadedness, weakness, fatigue, cold sweats over the past 2 days and thought that this was related to being status post and having a baby. She does report that she has had persistent vaginal bleeding, worse when going to the bathroom. Currently she is using 2-3 pads a day. She endorses some mild pain at the site of her incision. Denies fevers. She has no other complaints at this time. PFSH Past Medical History Anemia: Yes Arthritis: No Asthma: No Atrial Fibrillation: Yes Autoimmune Disease: No Anxiety: Yes Depression: Yes Heart Rhythm Problems: Yes (atrial flutter, external monitor in place L upper chest) Cancer: No Cardiovascular Problems: Yes (SEE EMR) High Cholesterol: No Chemotherapy: No Chest Pain: No Congestive Heart Failure: No COPD: No Cerebrovascular Accident: No Diabetes: No Diminished Hearing: No Endocrine: No Fibromyalgia: Yes Glaucoma: No Genitourinary: No Headaches: Yes (migrane) Hepatitis: No Hiatal Hernia: No Hypertension: No Immune Disorder: No Kidney Stones: No Medical other: Yes (MIGRAINES, ANEMIA) Musculoskeletal: Yes (chronic back pain) Neurologic: No Psychiatric: Yes (PTSD, Anxiety, Depression. Borderline Personality Disorder) Reproductive: Yes ( ENDOMETRIOSIS) Respiratory: No Immunizations Current: Yes Migraines: Yes Radiation Therapy: No Renal Failure: No Seizures: Yes (patient reports a history of one seizure in 2013) Sickle Cell Disease: No Sleep Apnea: No Thyroid Disease: No Ulcer: No Tetanus Vaccination: < 5 Years Influenza Vaccination: Yes ?: Not Menopausal: No : 1 Miscarriage: 1 Past Surgical History Abdominal Surgery: Yes (EXPLORATORY LAPAROSCOPY) AICD: No Arteriovenous Shunt: No Cardiac Surgery: Yes (ablation for atrial flutter) Section: Yes Ear Surgery: No Endocrine Surgery: No Eye Surgery: No Insulin Pump: No Joint Replacement: No Oral Surgery: Yes (WISDOM TEETH REMOVED) Pacemaker: No Tonsillectomy: Yes Other Surgery: Yes (TOENAIL REMOVAL BILAT GREAT TOES) Social History Alcohol Use: No Tobacco Use: No Substance Use: No Allergies-Medications (Allergen,Severity, Reaction): Coded Allergies: gabapentin (Unverified Allergy, Severe, Twitching, 07/05/17) Reported Meds & Prescriptions Reported Meds & Active Scripts Active Zoloft (Sertraline HCl) 50 Mg Tab 50 Mg PO DAILY Oxycodone-Acetaminophen 5-325 (Oxycodone HCl/Acetaminophen) 5 Mg-325 Mg Tablet 1 Tab PO Q4H PRN Ibuprofen 600 Mg Tab 600 Mg PO Q6H PRN Phenergan (Promethazine HCl) 25 Mg Tablet 25 Mg PO Q6H PRN Zofran (Ondansetron HCl) 8 Mg Tab 8 Mg PO TID Pnv Ferrous Fumarate/Docu 29-1 mg ( Vit W/ Docusate-Fe Fu) 1 Tab Tab 1 Tab PO DAILY Reported Zantac (Ranitidine HCl) 150 Mg Tab 150 Mg PO DAILY Tylenol (Acetaminophen) 325 Mg Tab 1,000 Mg PO BID PRN Review of Systems Except as stated in HPI: all other systems reviewed are Neg Physical Exam Narrative GENERAL: Well-developed well-nourished female in no acute distress SKIN: Pale. HEAD: Atraumatic. Normocephalic. EYES: Pupils equal and round. No scleral icterus. No injection or drainage. ENT: No nasal bleeding or discharge. Mucous membranes pink and moist. NECK: Trachea midline. No JVD. CARDIOVASCULAR: Regular rate and rhythm. No murmur appreciated. RESPIRATORY: No accessory muscle use. Clear to auscultation. Breath sounds equal bilaterally. GASTROINTESTINAL: Abdomen soft, non-tender, nondistended. Hepatic and splenic margins not palpable. incision appears normal, Steri-Strips in place. No wound dehiscence, drainage. MUSCULOSKELETAL: No obvious deformities. No clubbing. No cyanosis. No edema. NEUROLOGICAL: Awake and alert. No obvious cranial nerve deficits. Motor grossly within normal limits. Normal speech. PSYCHIATRIC: Appropriate mood and affect; insight and judgment normal. Data Data Last Documented VS Vital Signs Date Time Temp Pulse Resp B/P (MAP) Pulse Ox O2 Delivery O2 Flow Rate FiO2 2/5/18 16:57 97.7 67 18 131/80 (97) 100 Orders Orders Type And Screen (07/05/17 17:16) Complete Blood Count With Diff (07/05/17 17:16) Comprehensive Metabolic Panel (07/05/17 17:16) Act Partial Throm Time (Ptt) (07/05/17 17:16) Prothrombin Time / Inr (Pt) (07/05/17 17:16) Ed Discharge Order (07/05/17 18:22) Labs Laboratory Tests Test 07/05/17 17:35 White Blood Count 10.0 TH/MM3 Red Blood Count 2.89 MIL/MM3 Hemoglobin 8.6 GM/DL Hematocrit 25.4 % Mean Corpuscular Volume 87.8 FL Mean Corpuscular Hemoglobin 29.7 PG Mean Corpuscular Hemoglobin Concent 33.8 % Red Cell Distribution Width 13.9 % Platelet Count 591 TH/MM3 Mean Platelet Volume 6.9 FL Neutrophils (%) (Auto) 66.3 % Lymphocytes (%) (Auto) 26.8 % Monocytes (%) (Auto) 4.9 % Eosinophils (%) (Auto) 1.4 % Basophils (%) (Auto) 0.6 % Neutrophils # (Auto) 6.6 TH/MM3 Lymphocytes # (Auto) 2.7 TH/MM3 Monocytes # (Auto) 0.5 TH/MM3 Eosinophils # (Auto) 0.1 TH/MM3 Basophils # (Auto) 0.1 TH/MM3 CBC Comment DIFF FINAL Differential Comment Prothrombin Time 9.9 SEC Prothromb Time International Ratio 1.0 RATIO Activated Partial Thromboplast Time 25.3 SEC Blood Urea Nitrogen 10 MG/DL Creatinine 0.49 MG/DL Random Glucose 66 MG/DL Total Protein 6.5 GM/DL Albumin 2.6 GM/DL Calcium Level 8.4 MG/DL Alkaline Phosphatase 125 U/L Aspartate Amino Transf (AST/SGOT) 21 U/L Alanine Aminotransferase (ALT/SGPT) 13 U/L Total Bilirubin 0.3 MG/DL Sodium Level 139 MEQ/L Potassium Level 3.9 MEQ/L Chloride Level 106 MEQ/L Carbon Dioxide Level 24.6 MEQ/L Anion Gap 8 MEQ/L Estimat Glomerular Filtration Rate 155 ML/MIN MDM Medical Decision Making Medical Screen Exam Complete: Yes Emergency Medical Condition: Yes Medical Record Reviewed: Yes Differential Diagnosis Postoperative anemia versus vaginal bleeding versus symptomatic anemia Narrative Course Lab work was performed here revealing a hemoglobin of 8.6 which is improved from her discharge on July 02 in which it was 8.2. The patient was relieved to know this. Her other lab work is unremarkable. She has an OB appointment morning. She'll be discharged with a copy of all of her lab work. Diagnosis Primary Impression: Postoperative anemia Additional Instructions: Hemoglobin today is 8.6. Follow-up with your sign painter apprentice as scheduled and return for any acutely new or worsening symptoms. Med/Other Pt SpecificInfo: No Change to Meds Disposition: 01 DISCHARGE HOME Condition: Stable Gopal Jones Jul 05, 2017 17:23
[2017-07-05 18:02] LABS: AUTOMATED NEUTROPHIL # 6.6 TH/MM3 (1.8-7.7); BASOPHIL # 0.1 TH/MM3 (0-0.2); BASOPHIL % 0.6 % (0.0-2.0); EOSINOPHIL # 0.1 TH/MM3 (0-0.4); EOSINOPHIL % 1.4 % (0.0-4.0); HEMATOCRIT 25.4 % (35.0-46.0); HEMOGLOBIN 8.6 GM/DL (11.6-15.3); LYMPH % 26.8 % (9.0-44.0); LYMPHOCYTE # 2.7 TH/MM3 (1.0-4.8); MEAN CELL VOLUME 87.8 FL (80.0-100.0); MEAN CORPUSCULAR HEMOGLOBIN 29.7 PG (27.0-34.0); MEAN CORPUSCULAR HGB CONC 33.8 % (32.0-36.0); MEAN PLATELET VOLUME 6.9 FL (7.0-11.0); MONO % 4.9 % (0.0-8.0); MONOCYTE # 0.5 TH/MM3 (0-0.9); NEUT % 66.3 % (16.0-70.0); PLATELET COUNT 591 TH/MM3 (150-450); RED BLOOD COUNT 2.89 MIL/MM3 (4.00-5.30); RED CELL DISTRIBUTION WIDTH 13.9 % (11.6-17.2)
[2017-07-05 18:08] LABS: PROTHROMBIN TIME - PATIENT 9.9 SEC (9.8-11.6)
[2017-07-05 18:16] LABS: ALBUMIN 2.6 GM/DL (3.4-5.0); ALT (GPT) 13 U/L (10-53); AST (GOT) 21 U/L (15-37); BICARBONATE 24.6 MEQ/L (21.0-32.0); BLOOD UREA NITROGEN 10 MG/DL (7-18); CALCIUM 8.4 MG/DL (8.5-10.1); CHLORIDE 106 MEQ/L (98-107); CREATININE 0.49 MG/DL (0.50-1.00); GLOMERULAR FILTRATION RATE 155 ML/MIN (>89); GLUCOSE,RANDOM 66 MG/DL (74-106); SODIUM (NA) 139 MEQ/L (136-145)
[2017-07-05 18:19] LABS: ALKALINE PHOSPHATASE 125 U/L (45-117); TOTAL BILIRUBIN ADULT 0.3 MG/DL (0.2-1.0); TOTAL PROTEIN 6.5 GM/DL (6.4-8.2)
== END 2017-07-05 18:49 | disposition home or self-care (01) ==
LOC: NEPE 16:55
DX: O90.81 Anemia of the puerperium (principal)
CPT/HCPCS: 80053; 85025; 85610; 85730; 86850; 86900; 86901; 99283